=== PATIENT | female | born 1945 | race Caucasian/White ===

== ENCOUNTER 2018-05-23 06:59 | Inpatient (IN) | payer OTHER, SELFPAY ==
[2018-05-19 12:54] VITALS: BMI 32.1
[2018-05-23] VITALS (15 sets, daily range): BP systolic 100–145; BP diastolic 51–88; PULSE 84–97; RESP 16–22; TEMP 36.1–37.1; O2SAT 93–99; BMI 30.4
--- NOTE | 2018-05-23 07:38 | SUR.PREOP ---
Talking preoperatively about an ant infestion in her house. ? if home environment may be cause for concern of post operative infection.
[2018-05-23] MEDS: LACTATED RINGERS 1,000 ML 42 ML IV ×2 (07:43→11:41)
[2018-05-23] MEDS: CEFAZOLIN 2 GM/100 ML FROZ.PIGGY IV ×3 (08:01→19:11)
--- NOTE | 2018-05-23 08:17 | PM.PREOP ---
Pre-operative Note Interval Note Pre-op Check: History & Physical Reviewed by Physician, Exam Performed and History & Physical exam performed today
--- NOTE | 2018-05-23 08:50 | SUR.OPER ---
Prone on spine table, head in foam head support, padded chest and pelvic supports, gel pad at knees, lower legs supported by pillows; nipples, genitalia and toes free of pressure, arms secured on foam padded arm boards at <90 degrees abduction. Tape over blanket at thigh secured to table. Pt presents to the OR with right pupil slightly smaller than left as noted per anesthesia.
[2018-05-23] MEDS: BUPIVACAINE LIPOSOME 266 MG/20 ML VIAL INJ (09:04)
[2018-05-23] MEDS: BUPIVACAINE 0.25% W/ EPI 50 ML VIAL INJ (09:06)
--- NOTE | 2018-05-23 11:22 | SUR.OPER ---
blood sugar at 1005 was 137
--- NOTE | 2018-05-23 11:37 | PC.NURSE ---
Day shift: Pt not on this unit at this time. Will chart when Pt under this writers care. Time now is 1138.
[2018-05-23] MEDS: ACETAMINOPHEN IV 1,000 MG/100 ML VIAL 400 MG IV (11:43)
--- NOTE | 2018-05-23 12:36 | PM.OP.1 ---
Operative Date/Time/Diagnoses Date of procedure: 05/23/18 Time of procedure: 08:36 Pre-op diagnosis: 1. Lumbar scoliosis 2. Lumbar spinal stenosis. 3. Lumbar spondylosis with radiculopathy Post-op diagnosis: same Procedure & Clinicians Procedure: 1. L3-4, L4-5, L5-S1 Postero-lateral and posterior interbody fusion 2. L3-4, L4-5, L5-S1 interbody cage placement. 3. L3-4, L4-5, L5-S1 decompressive laminectomy with bilateral facetecomies 4. L3-4, L4-5, L5-S1 Posterior segmental instrumentation 5. Hanna of bone marrow from iliac crest 6. Utilization of microsurgical technique and operating microscope Same procedure as scheduled: Yes Indications: Patient has been having chronic back pain and worsening lumbar radiculopathy. Patient failed multiple conservative management with worsening pain weakness and numbness in her lower extremity. Patient has been having difficulty performing activity of daily living. After discussing risks benefits of treatment options, patient elected proceed with surgery. Surgeon: Kimberly Suarez Merchandise Support Associate: Lorna Hobbs Click Yes if Unassisted: No Anesthesia Type: General Operative Notes Closure Type: primary Specimen(s): none sent Implants & Drains: Globus Revolve screws and caliber cages Applied: catheter Estimated Blood Loss (mL): 250 Blood products transfused: none Procedure in detail: Patient was seen in the preoperative area. Risks and benefits of the surgery was discussed with the patient. Informed consent was obtained from the patient and placed in the chart. Surgical site was marked. Patient was taken to the operative room. General anesthesia was administered. Prophylactic antibiotic was given to the patient less than 30 min before the incision was made. Patient was placed into a prone position on the Yordan table. Patient's back was then prepped and draped in the sterile fashion. Time-out was performed at this time. Using AP and lateral C-arm imaging the interval between L3-S1 was identified and marked on patient's back. A 3 inch incision 2 in from midline was made on the left side first. The fascia was incised in line with skin incision. Globus MARS retractors was placed inside the incision and docked onto the L3, L4 and L5 lamina. Using microsurgical technique and operating microscope, a L3, L4 and L5 laminectomy and L3-4, L4-5 L5-S1 facetectomy was performed using a Kerrison rongeur. The disc space at L3-4, L4-5, L5-S1 was identified. And a total diskectomy was performed at L3-4, L4-5, L5-S1 level. The endplates were decorticated using a rasp and shaver. The total diskectomy and decortication was performed at L3-4, L4-5, L5-S1 level in order to to accomplish a L3-4, L4-5, L5-S1 fusion. The local bone from the laminectomy and facetectomy was saved for local bone grafting. After the total diskectomy and decortication was completed, Globus viacell bone graft material was combined with local bone that was harvested earlier. At this time, a separate skin is incision was made over the iliac crest. A Jamshidi needle was inserted into the iliac crest through a separate skin incision. 5 cc of bone marrow aspiration was obtained through the separate skin incision using a Jamshidi needle from the iliac crest. The bone marrow aspiration was combined with local bone and the via cell bone grafting material. The bone grafting material was placed into the L3-4, L4-5, L5-S1 interbody space along with three cages, one expandable cage at each level. The cages were expanded to their maximum height using the torque limiting screwdriver. At this time a mirror image incision was made on the right side. The fascia was incised in line with the skin incision. Globus MARS retractor was inserted and docked onto the L3-4, L4-5, L5-S1 posterolateral gutter. Using the power drill, posterior-lateral decortication was performed at L3-4, L4-5, L5-S1 level until bleeding cortical bone was identified. The remaining bone grafting material was placed into the L3-4, L4-5 L5-S1 posterior lateral gutter he order to accomplish posterolateral fusion at the L3-4, L4-5 L5-S1 levels. Using the double C-arm technique, pedicle screws were placed into the L3, L4, L5, S1 pedicles bilaterally. This was done by placing the Jamshidi needle into the pedicles, then placing the guidewires over the Jamshidi needle, and finally placing the cannulated screws over the guidewires bilaterally. After the pedicle screws were placed, 2 titanium rods was locked into the heads of the pedicle screws using locking caps and torque limiting screwdriver. Total 8 pedicles screws were placed. After all the hardware was placed, and confirmed with AP and lateral C-arm imaging, the wound was then irrigated with sterile normal saline and packed with Ray-Lelo gauze for 3 min to accomplish hemostasis. After the gauze was removed the deep fascia was closed with #1 Vicryl suture. The subcutaneous layer was closed with 2-0 Vicryl. The skin was closed with skin eliezer. Patient tolerated the procedure well. There were no complications. Complications: none Condition: stable Disposition: Acute Care Plan for aftercare: Admit to inpatient hospital
--- NOTE | 2018-05-23 12:40 | DI.RAD.S_ITS ---
PROCEDURE: XR LUMBAR SPINE 2-3V INDICATIONS: L-3-4, L4-5, L5-S1 TLIF TECHNIQUE: 2 views of the lumbar spine were acquired. COMPARISON: [facility], , XR LUMBAR SPINE 2 OR 3VW, 06/15/2017, 12:26. FINDINGS: Bones: AP and lateral intraoperative images were obtained over the lower lumbar spine showing placement of disc spacers at L3-4, L4-5 and L5-S1. Posterior fusion with transpedicular screws and vertical connecting rods bilaterally L3-S1 Soft tissues: Overlying bowel gas pattern is normal. No suspicious soft tissue calcifications. IMPRESSION: Intraoperative imaging for discectomy and posterior fusion L3-4, L4-5 and L5-S1 Dictated by: Marc Patel M.D. on 05/23/2018 at 12:50 Approved by: Marc Patel M.D. on 05/23/2018 at 12:51
[2018-05-23] MEDS: HYDROMORPHONE 2 MG INJ 0.5 MG IV ×3 (13:05→13:15)
--- NOTE | 2018-05-23 14:14 | PC.NURSE ---
Day shift: Arrived on AC unit in AC bed at approx 1405 from PACU. 2L NC w/ SpO2 95%. Pt very sleepy/drowsy at this time and is unable to ask any questions. Oriented to call light and it is in reach. High fall risk. Bed alarm is on as well as door open and line of site to this RN's work station. Bulky dressing on lower back is CDI. Put on cont O2 monitor for safety. Had IV Ativan in PACU. Will cont to monitor. Foot SCD's in place and tolerating. Rodriguez patent and drained by CONFERENCE CONCIERGE on arrival. Per PACU report Pt may have unsafe/unhealthy home environment for post-op healing. Noemi in notified. Pt likely to be here 48hr or more.
[2018-05-23] MEDS: SODIUM CHLORIDE 0.9% 1,000 ML 100 ML IV ×2 (14:28→23:59)
[2018-05-23] MEDS: hydrOXYzine pamoate 25 MG CAPSULE PO ×2 (16:40→21:08)
[2018-05-23] MEDS: OXYCODONE IR 5 MG TABLET 10 MG PO ×3 (16:40→23:58)
[2018-05-23] MEDS: HYDROMORPHONE 0.5 MG INJ IV ×4 (16:45→23:58)
[2018-05-23] MEDS: DICYCLOMINE 10 MG CAPSULE 40 MG PO (21:07)
[2018-05-23] MEDS: DOCUSATE 100 MG CAPSULE PO (21:09)
[2018-05-23] MEDS: SIMVASTATIN 40 MG TABLET PO (21:09)
[2018-05-23] MEDS: SENNOSIDES 8.6 MG TABLET 17.2 MG PO (21:09)
[2018-05-23] MEDS: METFORMIN HCL 500 MG TABLET PO (21:09)
[2018-05-24] VITALS (9 sets, daily range): BP systolic 111–142; BP diastolic 60–72; PULSE 93–95; RESP 16–20; TEMP 36.7–37.8; O2SAT 93–100
[2018-05-24] MEDS: OXYCODONE IR 5 MG TABLET 10 MG PO ×5 (04:04→21:55)
[2018-05-24] MEDS: CEFAZOLIN 2 GM/100 ML FROZ.PIGGY IV (04:25)
--- NOTE | 2018-05-24 05:21 | PC.NURSE ---
Computer Peripheral Equipment Operator- Pt did not have much sleep, on/off, mainly awake throughout night, was found to be asleep around 0300. Oriented X4, forgetful, needs frequent reminders for post op precautions, log roll and no twisting at waist. After being placed on pt's right side supported with pillows, pt bent at waist with slight twist to left, grabbing her water after having just reminded her of the post op precautions and using her bed controls for elevation. High fall risk precautions in place, bed alarm on, call light within reach. At 2345, lower mid back dressing CDI. Pt shifts herself frequently in bed. At 0430 assessment, right side of dressing rolled off and eliezer exposed. Dressing removed, area cleansed with NS, eliezer intact with both vertical incisions well approximated. Telfa with barrier dressing applied. IVF infusing well to right FA PIV.
[2018-05-24 05:58] LABS: Hematocrit 28.8 % (36-46); Hemoglobin 9.8 g/dL (12.0-16.0)
[2018-05-24] MEDS: HYDROMORPHONE 0.5 MG INJ IV ×2 (06:26→11:37)
[2018-05-24] MEDS: hydrOXYzine pamoate 25 MG CAPSULE PO ×2 (07:46→11:37)
[2018-05-24] MEDS: ACETAMINOPHEN 325 MG TABLET 650 MG PO (07:47)
--- NOTE | 2018-05-24 07:51 | PM.PNPO.1 ---
Subjective Date Patient Seen: 05/24/18 Time Patient Seen: 07:51 Interval history: Pt in bed. States she is having a lot of pain in the back area. Denies any leg pain. She is about to get her pain medication. S/P lumbar fusion by Dr. Suarez. PD 1. Plan is for patient to go home when medically stable to do so. Exam Vital Signs (past 8 hours): - 05/24/18 01:40 05/24/18 03:00 05/24/18 04:00 Temperature 100.1 F H Pulse Rate 94 H Respiratory Rate 20 Blood Pressure 142/72 H Pulse Oximetry 97 93 98 05/24/18 04:10 05/24/18 07:47 Temperature 99.5 F 99.8 F H Pulse Rate Respiratory Rate Blood Pressure Pulse Oximetry Oxygen Delivery Method Nasal Cannula Oxygen Flow Rate 1 Narrative Exam Narrative: Pt in bed. A&O x3. Back dressing CDI. 5/5 BLE strength. NV status intact. Edgard calves soft and nontender. Underwood in. Objective Labs Result Diagrams: 05/24/18 05:22 Labs: Laboratory Results - last 24 hr 05/24/18 05:22 Hgb 9.8 L Hct 28.8 L Assessment & Plan Post-op (1) Postoperative anemia: Problem details: Iron and Vt C ordered Current Visit: Yes Status: Acute Postoperative Procedures Operation Date: 05/23/18 07:45 Actual Procedures Side Surgeon p L3-4,L4-5,L5-S1 TLIF w/Posterior Instru Kimberly Suarez MD s/p lumbar fusion. PD 1. Continue pain medication. Mobilize with PT. D/C underwood when more mobile. Plan is to d/c home when medically stable. Time Spent With Patient less than 15 minutes
[2018-05-24] MEDS: PANTOPRAZOLE 40 MG TABLET PO (09:31)
[2018-05-24] MEDS: LOSARTAN 50 MG TABLET PO (09:32)
[2018-05-24] MEDS: ASCORBIC ACID 500 MG TABLET PO (09:32)
[2018-05-24] MEDS: FLUoxetine 20 MG CAPSULE 40 MG PO (09:32)
[2018-05-24] MEDS: FERROUS SULFATE 325 MG TABLET PO (09:32)
[2018-05-24] MEDS: DICYCLOMINE 10 MG CAPSULE 40 MG PO ×2 (09:32→20:32)
[2018-05-24] MEDS: METFORMIN HCL 500 MG TABLET PO ×2 (09:32→20:32)
[2018-05-24] MEDS: DOCUSATE 100 MG CAPSULE PO ×2 (09:32→20:32)
--- NOTE | 2018-05-24 09:55 | PT.IIE ---
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) Other spondylosis with radiculopathy, lumbar region (05/23/18) Spinal stenosis, lumbar region without neurogenic claudication (05/23/18) Surgery Performed Operation Date: 05/23/18 07:45 Actual Procedures p L3-4,L4-5,L5-S1 TLIF w/Posterior Lawrence - Kimberly Suarez MD Surgical History (Last Updated 05/20/18 @ 14:07 by Kalli Hylton RN) Hx of cholecystectomy (Acute) Hx of cone biopsy of cervix (Acute) Medical History (Last Updated 05/24/18 @ 07:54 by Tamiko Shah PA-C) Postoperative anemia (Acute) Back pain (Acute) Chronic headaches (Acute) Chronic hyperkalemia (Acute) Decreased vibratory sense (Acute) Depression (Acute) Diabetes (Acute) Diarrhea (Acute) GERD (gastroesophageal reflux disease) (Acute) HTN (hypertension) (Acute) Heel abrasion (Acute) History of hysterectomy (Acute) Hyperlipidemia (Acute) Renal tubular acidosis (Acute) Physical Therapy Inpatient Evaluation/Re-Eval M1 PT/OT-IP Prior Functional Status Start: 05/24/18 10:55 Freq: NEEDED Status: Active Protocol: Document 05/24/18 09:55 AB (Rec: 05/24/18 11:03 [id number]) Medical Review Prior Functional Status Medical History Reviewed Yes Communication with confusion but able to make needs known Mobility and Gait stated that she is independent with all mobilities and ambulation without AD but has not been able to do much since June of last year due to back pain Social History Household Members family Living Arrangements House Number of Floors (Floors) One Floor Number of Stairs To Enter/Railing? 2 steps to enter without rails Home Environment Standard Height Toilet Walk in Shower Home Equipment Front Wheel Walker Raised Toilet Seat Without Armrests Employment Status Retired Additional Social History Comment stated that she lives with her brother but her brother cannot provide physical assistance M2 PT-IP Current Condition Start: 05/24/18 10:55 Freq: NEEDED Status: Active Protocol: Document 05/24/18 09:55 AB (Rec: 05/24/18 11:03 AB [id number]) Physical Therapy Current Condition Current Condition Evaluation Date 05/24/18 Treatment Diagnosis L3-4, L4-5, L5S1 TLIF, laminectomy; difficulties in walking Onset Date 05/23/18 Precautions Lumbar Precautions Log Roll No Twisting Limit Bending Lifting Restriction of 10 lbs Gait Belt above Incisional Area M3 PT-IP Subjective Start: 05/24/18 10:55 Freq: NEEDED Status: Active Protocol: Document 05/24/18 09:55 AB (Rec: 05/24/18 11:03 AB [id number]) Subjective Physical Therapy Visit Type Type Initial Evaluation Visit Start Time 09:55 Visit Stop Time 10:35 Total Visit Minutes 40 Number of FULL STACK DEVELOPER Visits 0 Physical Therapy Visit Comments Patient Comments c/o a lot of pain Therapy Pain Assessment Pain When Pain Assessed At Rest Pain Present Pain Present Pain Reported Location Back Intensity 4 Scale Used pain increases to 10/10 with movement Pain Management Techniques Timing of Activity with Medications M4 PT-IP Mobility and Gait Start: 05/24/18 10:55 Freq: NEEDED Status: Active Protocol: Document 05/24/18 09:55 AB (Rec: 05/24/18 11:03 AB [id number]) PT-Bed Mobility Assessment Rolling Type of Rolling Log Rolling Level of Assist Maximal Assistance Supine to Sit Supine to Sit Maximum Assistance 1 Person Assistance Bedrails Scooting Scooting to Edge of Bed Moderate Assistance PT-Transfer Assessment Sit to and From Stand Sit to and from Stand Maximum Assistance 1 Person Assistance 2 Person Assistance Equipment Transfer Assistive Device Bed Rail Front Wheeled Walker Gait Assessment Gait Gait Assistance Required: Moderate Assistance Maximum Assistance Distance (Feet) (feet) 10 Able to Maintain Weight Bearing Status Yes During Gait Assistive Devices Assistive Device Gait Belt Front Wheeled Walker Orthotic/Prosthetic Devices or Brace: No Gait Deviations General Gait Pattern Antalgic Decreased Stride Length Decreased Feet Clearance Factors Limiting Gait Function Factors Limiting Gait Function Decreased Activity Tolerance Decreased Strength Difficulty Following Directions Limited Range of Motion Pain Poor Balance Poor Safety Awareness PT-Balance Assessment Sitting Balance and Reactions Static Sitting Balance Ability Good Dynamic Sitting Balance Ability Fair Standing Balance and Reactions Static Standing Balance Ability Fair Dynamic Standing Balance Ability Poor Device Used FWW M5 PT-IP Objective Assessments Start: 05/24/18 10:55 Freq: NEEDED Status: Active Protocol: Document 05/24/18 09:55 AB (Rec: 05/24/18 11:03 AB [id number]) Orientation Orientation/Cognition Level of Alertness Confusional State Orientation Name Year Place Situation Safety Awareness Decreased Safety Awareness Memory Description Short Term Impaired Gambling Broker Impaired Gross Range of Motion Lower Extremity ROM Assessment Within Functional Limits Strength Lower Extremity Strength Assessment Bilaterally Impaired Hip 4-/5 Knee 4-/5 M6 PT-IP Treatment Start: 05/24/18 10:55 Freq: NEEDED Status: Active Protocol: Document 05/24/18 09:55 AB (Rec: 05/24/18 11:03 AB [id number]) Physical Therapy Treatment Education Education Provided Precautions Weight Bearing Status Post-Op Packet Safety M7 PT-IP Assessment and Plan Start: 05/24/18 10:55 Freq: NEEDED Status: Active Protocol: Document 05/24/18 09:55 AB (Rec: 05/24/18 11:03 AB [id number]) PT Summary Assessment and Plan Potential Rehabilitation Potential Fair Status of Condition at Evaluation Evolving Summary Impairments Pain ROM Strength Balance Coordination Sensation Tone Cognition Bed Mobility Transfers Gait Activity Tolerance Assessment Summary pt requiring max A x 1-2 with mobility and has not been able tolerate much activity today. pt stated that her brother will not be able to assist her much at home. pt may require SNF rehab to improve mobility . Goals Bed Mobility Goal Standby Assistance Transfer Goal Standby Assistance Front Wheeled Walker Gait Goal Standby Assistance Front Wheel Walker Gait Distance 100 Other Goals up/down 2 steps without rails/ using FWW SBA Days to Meet Goals 3 Frequency of Treatment Frequency Of Treatment Twice a Day Treatment Plan Physical Therapy Treatment Plan Bed Mobility Training Transfer Training Gait Training Therapeutic Exercise Balance Retraining Post Op Education Discharge Planning Hot or Cold Pack Neuromuscular Re-ed Coordination Retraining Manual Therapy Other Recommendations and Next Treatment bed mobility, transfers, Focus ambulation Recommendations To Nursing Amount of Assist Needed 2 Person Assist Discharge Recommendations PT Discharge Recommendations SNF Rehab
--- NOTE | 2018-05-24 11:20 | CM.DANOTE ---
Discharge Planning/Care Management CM Discharge Assessment Start: 05/24/18 11:16 Freq: Status: Active Protocol: Document 05/24/18 11:16 RL (Rec: 05/24/18 11:20 RL [email or web address]) Discharge Planning Assessment History Provided By Patient Family Member Has Patient been admitted in last 30 No days? Is this patient on Medicare? Yes Is the admit diagnosis the same? No Comment [facility] Adv. Prior Living Arrangements House Household Members family Type of transporation used prior to Drives own vehicle admit Comment lives with brother Cristi Juan who will assist her after d/c. Willing to Return to Facility? No: Will not consider a facility at all Independent with ADL's Yes Is patient alert and oriented? Yes Caregiver for Another No Patient Discharge Plan Description Home with Home Health Comment Will refer to HH when closer to d/c. Pt wants [facility] as her niece works for them as an RN. Will likely need bath aide, PT, OT, possibly farmworker bulbs Plan Home with Home Health If patient plan is home with home health No: Not yet, just PO day 1 and : Has signed face to face form been MD not in to see pt yet. completed? Review Status Complete
--- NOTE | 2018-05-24 11:51 | CM.DANOTE ---
Discharge Planning/Care Management CM Discharge Assessment Start: 05/24/18 11:16 Freq: Status: Active Protocol: Document 05/24/18 11:16 RL (Rec: 05/24/18 11:20 RL [email or web address]) Discharge Planning Assessment History Provided By Patient Family Member Has Patient been admitted in last 30 No days? Is this patient on Medicare? Yes Is the admit diagnosis the same? No Comment [facility] Adv. Prior Living Arrangements House Household Members family Type of transporation used prior to Drives own vehicle admit Comment lives with brother Cristi Juan who will assist her after d/c. Willing to Return to Facility? No: Will not consider a facility at all Independent with ADL's Yes Is patient alert and oriented? Yes Caregiver for Another No Patient Discharge Plan Description Home with Home Health Comment Will refer to HH when closer to d/c. Pt wants [facility] as her niece works for them as an RN. Will likely need bath aide, PT, OT, possibly assistant kitchen manager Plan Home with Home Health If patient plan is home with home health No: Not yet, just PO day 1 and : Has signed face to face form been MD not in to see pt yet. completed? Review Status Complete Document 05/24/18 11:51 RL (Rec: 05/24/18 11:51 RL [id number]) Discharge Planning Assessment History Provided By Patient Family Member Has Patient been admitted in last 30 No days? Is this patient on Medicare? Yes Is the admit diagnosis the same? No Comment [facility] Adv. Prior Living Arrangements House Household Members family Type of transporation used prior to Drives own vehicle admit Comment lives with brother Cristi Juan who will assist her after d/c. Willing to Return to Facility? No: Will not consider a facility at all Independent with ADL's Yes Is patient alert and oriented? Yes Caregiver for Another No Patient Discharge Plan Description Home with Home Health Comment Will refer to HH when closer to d/c. Pt wants [facility] as her niece works for them as an RN. Will likely need bath aide, PT, OT, possibly assistant kitchen manager Plan Home with Home Health If patient plan is home with home health No: Not yet, just PO day 1 and : Has signed face to face form been MD not in to see pt yet. completed? Review Status Complete DCP Assessment: 05/24/18 Case reviewed, EMR reviewed and met with patient and her sister Radha Hudson and KAI Hudson. Patient would like her sister added to Next of Kin contacts: cell [phone]. Verified other Emerg Contact as Cristi Perez, her brother, who lives with her. Patient is A&O, answers all questions properly, but does appear a bit confused by some things and is slow to respond. States pain level has been high. Pt is a 72 yo female admitted as Inpatient on 05/23 for Lumbar Fusion under the care of Dr. Suarez. PCP: Chelsie Her, PAC in [place]. Primary payor is: [employer] [facility] Other health care agencies used: none Met with patient , her sister and KAI in pt room. Introduced self as DCP, explained role and goals of DCP and as pt advocate. All verbalized understanding. DCP wrote name and extension number on patient whiteboard. All agree that patient was independent at baseline for all ADLs prior to this hospitalization. Patient will NOT consider d/c to a facility at all wants to go home. Her niece, Callie, is an RN who works for [facility]. She has encouraged pt to ask MD for order for HH services when she is d/c. We talked about what HH services include and that she must be homebound. All verbalized understanding and agreed she will be homebound and not driving. Patient lives in own home with brother Cristi Juan who will assist her after d/c. Patient states she has much DME at home: FWW, cane, shower seat. There are no stairs. Discussed rails/hand holds and she may need this evaluated by HH OT. Gave patient brochures for [facility], Adv Directives, and Sr. Resource Guide. Patient does NOT have DPOA completed so this info was given. Also requested POLST form; none avail in DCP office, but Aster at [facility] [place] does have some and stated she will get one down to the patient. Contacted: [facility], demarco GARCIA messg on Janet?s phone, also called office and talked to Yaneth who verified that they do accept [employer] insurance. FAXed over information to them today on this patient, with understanding that she is POD 1 and likely won?t go home for 1-2 days. Plan: Home with HH if determined need by Dr. Suarez. NEED: signed F2F if so. Melissa Allen RN
--- NOTE | 2018-05-24 12:13 | PC.NURSE ---
Day shift: Pt's home meds sent to pharmacy for lock up this AM. Pt has been forgetful at times. She needs to have chair/bed alarms on at all times. She has been calm and cooperative w/ care. Call light in reach. Door to room open.
--- NOTE | 2018-05-24 14:07 | CM.DPC ---
JOSE butler received from Janet at [facility]. She stated information on this patient received by FAX, and yes, they would be able to accept this patient onto their service and could easily see her w/in 48hr of d/c, possibly even 24 hrs depending upon d/c day. DCP to keep in touch on patient progress and let [facility] know when patient closer to d/c. Will need F2F and HH order completed. Melissa Allen RN
--- NOTE | 2018-05-24 14:17 | PT.IPTN ---
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) Other spondylosis with radiculopathy, lumbar region (05/23/18) Spinal stenosis, lumbar region without neurogenic claudication (05/23/18) Surgery Performed Operation Date: 05/23/18 07:45 Actual Procedures p L3-4,L4-5,L5-S1 TLIF w/Posterior Lawrence Suarez MD Physical Therapy Treatment Note M2 PT-IP Current Condition Start: 05/24/18 10:55 Freq: NEEDED Status: Active Protocol: Document 05/24/18 09:55 AB (Rec: 05/24/18 11:03 AB [id number]) Physical Therapy Current Condition Current Condition Evaluation Date 05/24/18 Treatment Diagnosis L3-4, L4-5, L5S1 TLIF, laminectomy; difficulties in walking Onset Date 05/23/18 Precautions Lumbar Precautions Log Roll No Twisting Limit Bending Lifting Restriction of 10 lbs Gait Belt above Incisional Area M3 PT-IP Subjective Start: 05/24/18 10:55 Freq: NEEDED Status: Active Protocol: Document 05/24/18 13:03 CLB (Rec: 05/24/18 14:17 CLB [email or web address]) Subjective Physical Therapy Visit Type Type Treatment Note Visit Start Time 13:03 Visit Stop Time 13:27 Total Visit Minutes 24 Number of CRUISE GUIDE Visits 1 Physical Therapy Visit Comments Patient Comments Pt states she is feeling better this afternoon. Therapy Pain Assessment Pain When Pain Assessed During Mobility Pain Present Pain Present Pain Reported Location Back Scale Used unable to decide on a number but stated not as bad as this morning. Pain Management Techniques Timing of Activity with Medications M4 PT-IP Mobility and Gait Start: 05/24/18 10:55 Freq: NEEDED Status: Active Protocol: Document 05/24/18 13:03 CLB (Rec: 05/24/18 14:17 CLB [id number]) PT-Bed Mobility Assessment Rolling Type of Rolling Log Rolling Level of Assist Minimal Assistance 1 Person Assistance Sit to Supine Sit to Supine Minimal Assistance 1 Person Assistance PT-Transfer Assessment Sit to and From Stand Sit to and from Stand Contact Guard Assistance 1 Person Assistance Equipment Transfer Assistive Device Front Wheeled Walker Transfers Transfer Destination Bed Transfer Technique sitting on EOB upon arrival Transfer Ability Level of Assist Contact Guard Assistance Minimal Assistance 1 Person Assistance Comments Mobility Comments Pt improving with bed mobility . After demonstration pt was able to lay in bed with Min A of LE. Pt remained on R side once laying down. Gait Assessment Gait Gait Assistance Required: Contact Guard Assist 1 Person Assist Distance (Feet) (feet) 125 Able to Maintain Weight Bearing Status Yes During Gait Assistive Devices Assistive Device Gait Belt Front Wheeled Walker Orthotic/Prosthetic Devices or Brace: No Gait Deviations General Gait Pattern Antalgic Decreased Stride Length Decreased Feet Clearance Factors Limiting Gait Function Factors Limiting Gait Function Decreased Activity Tolerance Decreased Strength Difficulty Following Directions Limited Range of Motion Pain Poor Balance Poor Safety Awareness Comments Gait Comments Pt improved with ambulation distance and was able to walk in hemphill. Pt needed several rest breaks and cues for back precautions. PT-Balance Assessment Sitting Balance and Reactions Static Sitting Balance Ability Good Dynamic Sitting Balance Ability Fair Standing Balance and Reactions Static Standing Balance Ability Fair Dynamic Standing Balance Ability Poor Device Used FWW M5 PT-IP Objective Assessments Start: 05/24/18 10:55 Freq: NEEDED Status: Active Protocol: Document 05/24/18 09:55 AB (Rec: 05/24/18 11:03 AB [id number]) Orientation Orientation/Cognition Level of Alertness Confusional State Orientation Name Year Place Situation Safety Awareness Decreased Safety Awareness Memory Description Short Term Impaired Halfway Impaired Gross Range of Motion Lower Extremity ROM Assessment Within Functional Limits Strength Lower Extremity Strength Assessment Bilaterally Impaired Hip 4-/5 Knee 4-/5 M6 PT-IP Treatment Start: 05/24/18 10:55 Freq: NEEDED Status: Active Protocol: Document 05/24/18 09:55 AB (Rec: 05/24/18 11:03 AB [id number]) Physical Therapy Treatment Education Education Provided Precautions Weight Bearing Status Post-Op Packet Safety M7 PT-IP Assessment and Plan Start: 05/24/18 10:55 Freq: NEEDED Status: Active Protocol: Document 05/24/18 13:03 CLB (Rec: 05/24/18 14:17 CLB [email or web address]) PT Summary Assessment and Plan Potential Rehabilitation Potential Fair Status of Condition at Evaluation Evolving Summary Impairments Pain ROM Strength Balance Coordination Sensation Tone Cognition Bed Mobility Transfers Gait Activity Tolerance Assessment Summary Pt improving with all mobility and has better pain control. Pt lives with her brother and he will not be able to her assist with all care needs. Pt may require SNF rehab to improve strength and mobility. Goals Bed Mobility Goal Standby Assistance Transfer Goal Standby Assistance Front Wheeled Walker Gait Goal Standby Assistance Front Wheel Walker Gait Distance 100 Other Goals up/down 2 steps without rails/ using FWW SBA Frequency of Treatment Frequency Of Treatment Twice a Day Treatment Plan Physical Therapy Treatment Plan Bed Mobility Training Transfer Training Gait Training Therapeutic Exercise Balance Retraining Post Op Education Discharge Planning Hot or Cold Pack Neuromuscular Re-ed Coordination Retraining Manual Therapy Other Recommendations and Next Treatment bed mobility, transfers, Focus ambulation Recommendations To Nursing Amount of Assist Needed 1 Person Assist Discharge Recommendations PT Discharge Recommendations SNF Rehab
--- NOTE | 2018-05-24 15:55 | OT.IP.EVAL ---
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) Other spondylosis with radiculopathy, lumbar region (05/23/18) Spinal stenosis, lumbar region without neurogenic claudication (05/23/18) Surgery Performed Operation Date: 05/23/18 07:45 Actual Procedures p L3-4,L4-5,L5-S1 TLIF w/Posterior Lawrence Suarez MD Past Medical History (Last Updated 05/24/18 @ 07:54 by Tamiko Shah PA-C) Postoperative anemia (Acute) Back pain (Acute) Chronic headaches (Acute) Chronic hyperkalemia (Acute) Decreased vibratory sense (Acute) Depression (Acute) Diabetes (Acute) Diarrhea (Acute) GERD (gastroesophageal reflux disease) (Acute) HTN (hypertension) (Acute) Heel abrasion (Acute) History of hysterectomy (Acute) Hyperlipidemia (Acute) Renal tubular acidosis (Acute) Surgical History (Last Updated 05/20/18 @ 14:07 by Kalli Hylton RN) Hx of cholecystectomy (Acute) Hx of cone biopsy of cervix (Acute) Occupational Therapy Inpatient Evaluation/Re-Eval M1 PT/OT-IP Prior Functional Status Start: 05/24/18 10:55 Freq: NEEDED Status: Active Protocol: Document 05/24/18 15:55 PAMELA (Rec: 05/24/18 17:06 PAMELA [id number]) Medical Review Prior Functional Status Medical History Reviewed Yes Diet/Fluid Consistency Regular Communication WFL Mobility and Gait stated that she is independent with all mobilities and ambulation without AD but has not been able to do much since June of last year due to back pain Activities of Daily Living and IADL's Pt states she is indep with all self care and does her own meal prep, grocery shopping and laundry. 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 Pt drives. Social History Household Members family Living Arrangements House Number of Floors (Floors) One Floor Number of Stairs To Enter/Railing? two small steps to enter (each step ~4 high) with no rail to enter house Home Environment Standard Height Toilet Walk in Shower Home Equipment Front Wheel Walker Shower Seat with Backrest Hand Held Shower Long Handled Sponge Employment Status Retired Additional Social History Comment Pt lives with her brother and states he is not able/willing to provide any physical assist to pt. He can assist with grocery shopping and some ice sculptor. Pt states her niece, who is an RN, may be able to assist her with showering at home. M2 OT-IP Current Condition Start: 05/24/18 14:38 Freq: Status: Active Protocol: Document 05/24/18 15:55 PJM (Rec: 05/24/18 17:06 [facility] [id number]) Occupational Therapy Current Condition Current Condition Evaluation Date 05/24/18 Treatment Diagnosis decreased self care,functional mobility s/p multi level lumbar fusion Diagnosis Onset Date 05/23/18 Post Operative Precautions Lumbar Precautions Log Roll No Twisting Limit Bending Lifting Restriction of 10 lbs Gait Belt above Incisional Area M3 OT- IP Subjective and Pain Start: 05/24/18 14:38 Freq: Status: Active Protocol: Document 05/24/18 15:55 PJM (Rec: 05/24/18 17:06 [facility] [id number]) OT- Subjective Occupational Therapy Visit Type Type Initial Evaluation Visit Start Time 15:05 Visit Stop Time 15:55 Total Visit Minutes 50 Occupational Therapy Visit Comments Patient Comments I have got to get up now. I need to change positions. Patient/Caregiver Goals to resume independent living at home, be able to garden OT Pain Assessment Pain When Pain Assessed After Treatment Pain Present Pain Present Pain Reported Location Back Intensity 7 Scale Used Numeric (1 - 10) Description Aching Acute Pain Behaviors Facial Grimacing Guarding Restlessness Wincing Management Techniques Distraction Re-positioning Timing of Activity with Medications M4 OT- IP ADL's Start: 05/24/18 14:38 Freq: Status: Active Protocol: Document 05/24/18 15:55 PJM (Rec: 05/24/18 17:06 [facility] [id number]) OT [id number] General Evaluation Self-Feeding Ability Independent Comments OT Self-Feeding Comments per pt report OT ADL-Grooming Comments OT Grooming Comments to be assessed OT ADL-Oral Care Comments Oral Care Comments to be assessed OT ADL-Dressing General Eval Upper Body Dressing Ability Standby Assistance Lower Body Dressing Ability Maximum Assistance Areas Needing Assistance Retrieving/Set-up of Clothing Underpants/Brief Pants/Shorts Socks Shoes Assistive Devices Dressing Assistive Devices Long Handled Shoe Horn Director Loan Sock Aid Comments OT Dressing Comments Began education/demo re: use of early childhood coordinator, sock aid, long shoe horn. Pt took pictures of equipt and texted them to her brother in law who is assisting her with obtaining equipt. OT ADL-Toileting General Evaluation Toileting Ability Total Assistance Areas Needing Assistance Empty Catheter or Colostomy Comments OT Toileting Comments underwood still in place, pt declines toilet paper aid OT ADL-Bathing Comments OT Bathing Comments to be assessed as activity tolerance improves M5 OT- IP IADL's Start: 05/24/18 14:38 Freq: Status: Active Protocol: Document 05/24/18 15:55 PJM (Rec: 05/24/18 17:06 [facility] [id number]) OT-Instrumental Activities of Daily Living Deficits IADL Deficits Identified Deficits Home Safety Awareness Awareness of Need for Assistance at Home Good Awareness Meal Preparation Meal Preparation Caregiver Provides Assist Meal Preparation Comments brother will assist with shopping for groceries per pt; she plans to microwave meals Carpet Installation Specialist Carpet Installation Specialist Caregiver Provides Assist Carpet Installation Specialist Comments brother to assist PRN Driving Driving Caregiver Provides Assist Driving Comments brother can assist until pt able M6 OT- IP Functional Cognition Start: 05/24/18 14:38 Freq: Status: Active Protocol: Document 05/24/18 15:55 PJM (Rec: 05/24/18 17:06 [facility] [id number]) Cognitive Factors Limiting Selfcare Function Cognitive Ability Level of Alertness Alert Attention Span Ability Capable of Focused Attention Ability to Follow Commands Able to Follow One Step Commands Safety Awareness Decreased Recall of Precautions Decreased Ability to Apply Precautions Underestimates Need for Assistance Problem Solving Ability Needs Assist to Identify Solutions Executive Function Ability Unable to Filter Distractions Unable to Remember Details Cognitive Comments Cognitive Assessment Comments Pt restless and somewhat impulsive; requiring mod to max cues to follow precautions during mobility. OT- Vision and Hearing OT- Hearing Assessment OT- Hearing Assessment WFL OT- Vision Assessment Visual Acuity WFL Glasses All The Time Vision Assessment Comments Pt denies any recent vision changes M7 OT- IP Mobility and Balance Start: 05/24/18 14:38 Freq: Status: Active Protocol: Document 05/24/18 15:55 PJM (Rec: 05/24/18 17:06 [facility] [id number]) OT- Bed Mobility Assessment Rolling Type of Rolling Log Rolling Level of Assistance Contact Guard Assistance 1 Person Assistance Sit to Supine Sit to Supine Assist Contact Guard Assistance 1 Person Assistance Scooting Scooting to Edge of Bed Standby Assistance OT-Transfer Assessment Sit to and From Stand Sit to and from Stand Contact Guard Assistance Transfers Transfer Ability Contact Guard Assistance Technique Transfer Destination Chair Transfer Technique Stand Step Pivot Devices Transfer Assistive Devices Gait Belt Front Wheeled Walker Comments Mobility Comments Pt needs mod to max cues for log rolling technique and to avoid twisting and bending to get her purse off floor. OT- Gait Assessment Gait Gait Assistance Required: Contact Guard Assist Distance (Feet) (feet) 3 Assistive Devices Assistive Device Gait Belt Standard Walker Comments Gait Ability Comments from bed to chair with FWW OT- Balance Assessment Sitting Balance and Reactions Static Sitting Balance Ability Good Dynamic Sitting Balance Ability Fair Standing Balance and Reactions Static Standing Balance Ability Good Dynamic Standing Balance Ability Fair M8 OT- IP Objective Assessments Start: 05/24/18 14:38 Freq: Status: Active Protocol: Document 05/24/18 15:55 PJM (Rec: 05/24/18 17:06 PJ [id number]) OT Gross Range of Motion Upper Extremity Range of Motion Assessment Within Functional Limits OT Strength Upper Extremity Strength Assessment Within Functional Limits OT- Coordination Assessment Comments Coordination Comments BUE WFL OT-Muscle Tone Assessment Muscle Tone WNL Yes OT Sensation Assessment Comments Summary Comments Pt denies deficits in BUE's M9 OT- IP Assessment and Plan Start: 05/24/18 14:38 Freq: Status: Active Protocol: Document 05/24/18 15:55 PJM (Rec: 05/24/18 17:06 PJ [id number]) OT Summary Assessment and Plan Potential Rehabilitation Potential Good Analytic Complexity at Evaluation Low Summary OT Impairments Pain Balance Functional Cognition Functional Mobility Grooming Dressing Toileting Bathing Toilet Transfers Shower Transfers Assessment Summary Low complexity OT assessment completed with emphasis on functional mobility and self care skills within lumbar spine precautions. Pt can verbalize precautions, but needs mod to max cues to follow them during mobility. She is restless and impulsive due to pain level this session . Pt needs to be indep with basic self care in order to return home as her brother not willing to assist with this. Niece may be able to assist with showering. Brother will assist with some IADLS per pt. Pt moving well despite high pain level this PM. Anticipate pt will continue to improve and be able to d/c home with family assist. Pt needs further education/practice with all self care and functional mobility here to ensure that she is following precautions. Recommend HH OT/ PT/ possible bath aide at d/c. Goals Grooming Goal Independent Dressing Goal Independent Long Handled Shoe Horn Director Loan Sock Aid Toileting Goal Independent Bathing Goal Minimal Assistance Toilet Transfer Goal Independent Raised Toilet Seat With Rails Shower Transfer Goal Contact Guard Assistance Patient/Caregiver Education Goal Demonstrate Post-Op Precautions OT-Other Goals Grooming to be completed standing at sink. Days to Meet Goals 4 Frequency of Treatment Frequency Of Treatment Once a Day Treatment Plan OT Treatment Plan ADL Training Functional Mobility Patient/Family Education Discharge Planning Other Treatment Recommendations and Next grooming at sink, LB dressing Treatment Focus w/AED Discharge Recommendations OT Discharge Recommendations Home with Assistance Home Health Home Equipment Needs early childhood coordinator, sock aid, long shoe horn, raised toilet seat
[2018-05-24] MEDS: SENNOSIDES 8.6 MG TABLET 17.2 MG PO (20:33)
[2018-05-24] MEDS: SIMVASTATIN 40 MG TABLET PO (20:33)
[2018-05-25] VITALS (7 sets, daily range): BP systolic 108–134; BP diastolic 47–64; PULSE 75–98; RESP 16–20; TEMP 36.3–37.1; O2SAT 93–99
[2018-05-25] MEDS: hydrOXYzine pamoate 25 MG CAPSULE PO ×2 (03:53→11:19)
[2018-05-25] MEDS: OXYCODONE IR 5 MG TABLET 10 MG PO ×5 (03:53→20:51)
--- NOTE | 2018-05-25 08:35 | PM.PNPO.1 ---
Subjective Date Patient Seen: 05/25/18 Time Patient Seen: 08:36 Interval history: Patient is postop day 2 status post lumbar fusion by Dr. Suarez. States pain is tolerable with pain medications. Has been up to chair few times and a little out to hallway. Rodriguez still in. Would like to go home but a little concerned with pain control. Exam Vital Signs (past 8 hours): - 05/25/18 04:30 Temperature 98.1 F Pulse Rate 91 H Respiratory Rate 18 Blood Pressure 126/55 H Pulse Oximetry 96 Oxygen Delivery Method Nasal Cannula Oxygen Flow Rate 1 Narrative Exam Narrative: Patient in bed. Alert orient x3. Back dressing clean, dry but starting to come off a little. Edgard calves soft and nontender. NV status intact. 5/5 BLE strength. Rodriguez in. Objective Labs Result Diagrams: 05/24/18 05:22 Assessment & Plan Post-op Postoperative Procedures Operation Date: 05/23/18 07:45 Actual Procedures Side Surgeon p L3-4,L4-5,L5-S1 TLIF w/Posterior Instru Kimberly Suarez MD On postop day 2 status post lumbar fusion by Dr. Suarez. Continue PT. Continue pain medication as needed. Will DC Rodriguez when more mobile. Change back dressing to cover site dressing. Continue iron and vitamin C for postoperative anemia. New H&H ordered for tomorrow. Anticipate DC home tomorrow. Time Spent With Patient less than 15 minutes
[2018-05-25] MEDS: FLUoxetine 20 MG CAPSULE 40 MG PO (09:36)
[2018-05-25] MEDS: METFORMIN HCL 500 MG TABLET PO ×2 (09:36→20:52)
[2018-05-25] MEDS: ASCORBIC ACID 500 MG TABLET PO (09:36)
[2018-05-25] MEDS: LOSARTAN 50 MG TABLET PO (09:36)
[2018-05-25] MEDS: FERROUS SULFATE 325 MG TABLET PO (09:36)
[2018-05-25] MEDS: DOCUSATE 100 MG CAPSULE PO ×2 (09:37→20:51)
[2018-05-25] MEDS: DICYCLOMINE 10 MG CAPSULE 40 MG PO ×2 (09:37→20:51)
[2018-05-25] MEDS: PANTOPRAZOLE 40 MG TABLET PO (09:38)
--- NOTE | 2018-05-25 10:16 | PT.IPTN ---
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) Other spondylosis with radiculopathy, lumbar region (05/23/18) Spinal stenosis, lumbar region without neurogenic claudication (05/23/18) Surgery Performed Operation Date: 05/23/18 07:45 Actual Procedures p L3-4,L4-5,L5-S1 TLIF w/Posterior Lawrence Suarez MD Physical Therapy Treatment Note M2 PT-IP Current Condition Start: 05/24/18 10:55 Freq: NEEDED Status: Active Protocol: Document 05/25/18 10:01 TMS (Rec: 05/25/18 10:16 TMS [id number]) Physical Therapy Current Condition Current Condition Evaluation Date 05/24/18 Treatment Diagnosis L3-4, L4-5, L5S1 TLIF, laminectomy; difficulties in walking Onset Date 05/23/18 Precautions Lumbar Precautions Log Roll No Twisting Limit Bending Lifting Restriction of 10 lbs Gait Belt above Incisional Area Weight Bearing Status Weight Bearing Status Weight Bear as Tolerated M3 PT-IP Subjective Start: 05/24/18 10:55 Freq: NEEDED Status: Active Protocol: Document 05/25/18 10:01 TMS (Rec: 05/25/18 10:16 TMS [id number]) Subjective Physical Therapy Visit Type Type Treatment Note Visit Start Time 09:35 Visit Stop Time 09:55 Total Visit Minutes 20 Number of DOUBLE CUT SAWYER Visits 2 Physical Therapy Visit Comments Patient Comments Pt. sitting on EOB, FIBERLINE SUPERVISOR assisted with logrolling and Min-A. Pt. just woke up, RN in process of giving her pain pills. Therapy Pain Assessment Pain When Pain Assessed During Mobility Pain Present Pain Present Pain Reported Location Back Scale Used Rated pain at 0 initially, then complained of muscular pain with gait. Pain Management Techniques Distraction Timing of Activity with Medications M4 PT-IP Mobility and Gait Start: 05/24/18 10:55 Freq: NEEDED Status: Active Protocol: Document 05/25/18 10:01 TMS (Rec: 05/25/18 10:16 TMS [id number]) PT-Transfer Assessment Sit to and From Stand Sit to and from Stand Contact Guard Assistance 1 Person Assistance Use of Upper Extremities Equipment Transfer Assistive Device Front Wheeled Walker Comments Mobility Comments Pt. needed cues for hand placement with sit>stand, cues to avoid twisting with sitting and sit>stand. Gait Assessment Gait Gait Assistance Required: Contact Guard Assist 1 Person Assist Distance (Feet) (feet) 100 Able to Maintain Weight Bearing Status Yes During Gait Assistive Devices Assistive Device Gait Belt Front Wheeled Walker Orthotic/Prosthetic Devices or Brace: No Gait Deviations General Gait Pattern Antalgic Decreased Stride Length Flexed Trunk Narrow Based Gait Factors Limiting Gait Function Factors Limiting Gait Function Decreased Strength Incoordination Pain Poor Balance Poor Safety Awareness Comments Gait Comments Pt. with little complaints of pain with mobility, more complaints of back fatigue. Able to recite back precautions but doesn't follow through with them with mobility. Tends to twist a lot with gait and sitting on EOB. M5 PT-IP Objective Assessments Start: 05/24/18 10:55 Freq: NEEDED Status: Active Protocol: Document 05/24/18 09:55 AB (Rec: 05/24/18 11:03 AB [id number]) Orientation Orientation/Cognition Level of Alertness Confusional State Orientation Name Year Place Situation Safety Awareness Decreased Safety Awareness Memory Description Short Term Impaired Intermediate Impaired Gross Range of Motion Lower Extremity ROM Assessment Within Functional Limits Strength Lower Extremity Strength Assessment Bilaterally Impaired Hip 4-/5 Knee 4-/5 M6 PT-IP Treatment Start: 05/24/18 10:55 Freq: NEEDED Status: Active Protocol: Document 05/24/18 09:55 AB (Rec: 05/24/18 11:03 AB [id number]) Physical Therapy Treatment Education Education Provided Precautions Weight Bearing Status Post-Op Packet Safety M7 PT-IP Assessment and Plan Start: 05/24/18 10:55 Freq: NEEDED Status: Active Protocol: Document 05/25/18 10:01 TMS (Rec: 05/25/18 10:16 TMS [id number]) PT Summary Assessment and Plan Potential Rehabilitation Potential Fair Status of Condition at Evaluation Evolving Summary Impairments Pain ROM Strength Balance Coordination Sensation Tone Cognition Bed Mobility Transfers Gait Activity Tolerance Assessment Summary Pt. moving well but not following precautions. States brother will help with meals but will not help with any physical needds. Frequency of Treatment Frequency Of Treatment Twice a Day Treatment Plan Physical Therapy Treatment Plan Bed Mobility Training Transfer Training Gait Training Therapeutic Exercise Balance Retraining Post Op Education Discharge Planning Hot or Cold Pack Neuromuscular Re-ed Coordination Retraining Manual Therapy Other Recommendations and Next Treatment bed mobility, transfers, Focus ambulation Recommendations To Nursing Amount of Assist Needed 1 Person Assist Discharge Recommendations PT Discharge Recommendations SNF Rehab
--- NOTE | 2018-05-25 11:13 | OT.IP.TRT ---
Addendum entered and electronically signed by Nika Lynn OT 05/25/18 18:49: Pt would benefit from SNF at discharge for further education/reinforcement of lumbar spine precautions. Pt's brother cannot provide any physical assist at home. If pt d/c's home, recommend HH PT/OT/bath aide. Original Note: 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) Other spondylosis with radiculopathy, lumbar region (05/23/18) Spinal stenosis, lumbar region without neurogenic claudication (05/23/18) Surgery Performed Operation Date: 05/23/18 07:45 Actual Procedures p L3-4,L4-5,L5-S1 TLIF w/Posterior Louu - Kimberly Suarez MD Occupational Therapy Treatment Note M2 OT-IP Current Condition Start: 05/24/18 14:38 Freq: Status: Active Protocol: Document 05/24/18 15:55 PJM (Rec: 05/24/18 17:06 PJM [id number]) Occupational Therapy Current Condition Current Condition Evaluation Date 05/24/18 Treatment Diagnosis decreased self care,functional mobility s/p multi level lumbar fusion Diagnosis Onset Date 05/23/18 Post Operative Precautions Lumbar Precautions Log Roll No Twisting Limit Bending Lifting Restriction of 10 lbs Gait Belt above Incisional Area M3 OT- IP Subjective and Pain Start: 05/24/18 14:38 Freq: Status: Active Protocol: Document 05/25/18 11:13 PJM (Rec: 05/25/18 18:45 PJM [id number]) OT- Subjective Occupational Therapy Visit Type Type Treatment Note Visit Start Time 10:15 Visit Stop Time 11:13 Total Visit Minutes 58 Occupational Therapy Visit Comments Patient Comments I really want to take a shower. OT Pain Assessment Pain When Pain Assessed After Treatment Pain Present Pain Present Pain Reported Location Back Intensity 8 Scale Used Numeric (1 - 10) Description Aching Acute Spasm Pain Behaviors Facial Grimacing Guarding Restlessness Wincing Management Techniques Distraction Re-positioning Timing of Activity with Medications M4 OT- IP ADL's Start: 05/24/18 14:38 Freq: Status: Active Protocol: Document 05/25/18 11:13 PJM (Rec: 05/25/18 18:45 PJM [id number]) OT ADL-Grooming General Evaluation Grooming Ability Standby Assistance Areas Needing Assistance Retrieving/Set-up of Grooming Items Combing/Brushing Hair OT ADL-Oral Care General Eval Oral Care Ability Standby Assistance Comments Oral Care Comments Pt insists on bending forward to lean on sink despite verbal cues to stand upright OT ADL-Dressing General Eval Upper Body Dressing Ability Standby Assistance Lower Body Dressing Ability Minimal Assistance Areas Needing Assistance Retrieving/Set-up of Clothing Underpants/Brief Socks Assistive Devices Dressing Assistive Devices Teradata Architect Comments OT Dressing Comments Pt doffs socks with center medical director. Declines sock aid and able to cross foot over opposite knee with no c/o of back pain to don socks. Pt using center medical director to don and doff brief over feet and get objects off floor.Pt needs mod verbal cues for body mechanics. OT ADL-Toileting General Evaluation Toileting Ability Standby Assistance Comments OT Toileting Comments Pt needs mod verbal cues for body mechanics. OT ADL-Bathing Bathing Type Bathing Type Shower General Evaluation Bathing Ability Minimal Assistance Devices Bathing Equipment Long Handled Sponge or Residential Gas Heat Technician Held Shower Sprayer Shower Chair without Arms Grab Bars Comments OT Bathing Comments Heavy use of grab bars which pt does not have at home. Plans to sit on small stool without arms at home.Pt needs max verbal cues for body mechanics. Unorganized approach and needs verbal cues to problem solve adpated techniques e.g. use of long bath sponge. M5 OT- IP IADL's Start: 05/24/18 14:38 Freq: Status: Active Protocol: Document 05/24/18 15:55 PJM (Rec: 05/24/18 17:06 PJ [id number]) OT-Instrumental Activities of Daily Living Deficits IADL Deficits Identified Deficits Home Safety Awareness Awareness of Need for Assistance at Home Good Awareness Meal Preparation Meal Preparation Caregiver Provides Assist Meal Preparation Comments brother will assist with shopping for groceries per pt; she plans to microwave meals Rubber Goods Supervisor Rubber Goods Supervisor Caregiver Provides Assist Rubber Goods Supervisor Comments brother to assist PRN Driving Driving Caregiver Provides Assist Driving Comments brother can assist until pt able M6 OT- IP Functional Cognition Start: 05/24/18 14:38 Freq: Status: Active Protocol: Document 05/25/18 11:13 PJM (Rec: 05/25/18 18:45 PJM [id number]) Cognitive Factors Limiting Selfcare Function Cognitive Ability Level of Alertness Alert Patient Orientation Name Age Birthday Month Date Year Day of Week Place Situation Safety Awareness Decreased Ability to Apply Precautions Underestimates Need for Assistance Problem Solving Ability Unable to Identify Errors Needs Assist to Identify Solutions Executive Function Ability Unable to Filter Distractions Unable to Organize Plans Unable to Remember Details Unable to Integrate Past Experience With Present Action Abstract Thinking Ability Unable to Make Generalizations Unable to Apply Concepts to New Surroundings Unable to Apply Concepts to New Situations Cognitive Comments Cognitive Assessment Comments Pt able to state precautions but does not follow them during functional taks. Even with verbal cues, sometimes pt declines to avoid forward bending. Pt distracts self wtih conversation. Presents with decreased insight and problem solving. M7 OT- IP Mobility and Balance Start: 05/24/18 14:38 Freq: Status: Active Protocol: Document 05/25/18 11:13 PJM (Rec: 05/25/18 18:45 PJM [id number]) OT- Bed Mobility Assessment Rolling Type of Rolling Log Rolling Roll to Right Level of Assistance Contact Guard Assistance Supine to Sit Supine to Sit Assist Standby Assistance Sit to Supine Sit to Supine Assist Minimal Assistance Scooting Scooting to Edge of Bed Independent OT-Transfer Assessment Sit to and From Stand Sit to and from Stand Standby Assistance Transfers Transfer Ability Contact Guard Assistance Technique Transfer Destination Bed Shower Stall Toilet Transfer Technique Stand Step Pivot Devices Transfer Assistive Devices Gait Belt Front Wheeled Walker Comments Mobility Comments Pt needs mod to max cues for log rolling technique; restless in bed with frequent position changes with twisting noted depsite verbal cues. OT- Gait Assessment Gait Gait Assistance Required: Contact Guard Assist Distance (Feet) (feet) 25 Assistive Devices Assistive Device Gait Belt Front Wheeled Walker Comments Gait Ability Comments CGa to close SBA for safety due to decreased attention to task; tends to leave FWW behind at times OT- Balance Assessment Sitting Balance and Reactions Static Sitting Balance Ability Good Dynamic Sitting Balance Ability Good Standing Balance and Reactions Static Standing Balance Ability Good Dynamic Standing Balance Ability Fair Comments Other Balance Tests/Deviations/Treatment standing with FWW : M8 OT- IP Objective Assessments Start: 05/24/18 14:38 Freq: Status: Active Protocol: Document 05/24/18 15:55 PJM (Rec: 05/24/18 17:06 PJM [id number]) OT Gross Range of Motion Upper Extremity Range of Motion Assessment Within Functional Limits OT Strength Upper Extremity Strength Assessment Within Functional Limits OT- Coordination Assessment Comments Coordination Comments BUE WFL OT-Muscle Tone Assessment Muscle Tone WNL Yes OT Sensation Assessment Comments Summary Comments Pt denies deficits in BUE's M9 OT- IP Assessment and Plan Start: 05/24/18 14:38 Freq: Status: Active Protocol: Document 05/25/18 11:13 PJM (Rec: 05/25/18 18:45 PJM [id number]) OT Summary Assessment and Plan Summary OT Impairments Pain Balance Functional Cognition Functional Mobility Dressing Toileting Bathing Toilet Transfers Shower Transfers Progress Towards Goals Slow Progress due to Pain Slow Progress due to Cognition Assessment Summary Pt presents with significant difficulty applying lumbar spine precautions and follows them < 50% of the time, even with verbal cuing. Decreased insight into safety issues noted and pt underestimates need for assist with tasks such as bathing after d/c. Despite inability to follow precautions, pt's activity tolerance is improving daily. Pt needs to be indep with mobility, transfers, dressing, toileting to return home with brother who will not provide physical assist. Pt states her niece can assist with bathing , but has not yet confirmed this with niece. Recommend HH OT/PT/bath aide at d/c. Goals Grooming Goal Independent Dressing Goal Independent Teradata Architect Toileting Goal Independent Toilet Transfer Goal Independent Raised Toilet Seat With Rails Shower Transfer Goal Contact Guard Assistance Patient/Caregiver Education Goal Demonstrate Post-Op Precautions OT-Other Goals Grooming to be completed standing at sink. Days to Meet Goals 3 Frequency of Treatment Frequency Of Treatment Once a Day Treatment Plan OT Treatment Plan ADL Training Functional Mobility Patient/Family Education Discharge Planning Other Treatment Recommendations and Next grooming at sink, LB dressing Treatment Focus w/AED Discharge Recommendations OT Discharge Recommendations Home with Assistance Home Health Home Equipment Needs center medical director, long bath sponge were provided, raised toilet seat
[2018-05-25] MEDS: ACETAMINOPHEN 325 MG TABLET 650 MG PO (11:19)
--- NOTE | 2018-05-25 15:46 | PT.IPTN ---
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) Other spondylosis with radiculopathy, lumbar region (05/23/18) Spinal stenosis, lumbar region without neurogenic claudication (05/23/18) Surgery Performed Operation Date: 05/23/18 07:45 Actual Procedures p L3-4,L4-5,L5-S1 TLIF w/Posterior Lawrence - Kimberly Suarez MD Physical Therapy Treatment Note M2 PT-IP Current Condition Start: 05/24/18 10:55 Freq: NEEDED Status: Active Protocol: Document 05/25/18 10:01 TMS (Rec: 05/25/18 10:16 TMS [id number]) Physical Therapy Current Condition Current Condition Evaluation Date 05/24/18 Treatment Diagnosis L3-4, L4-5, L5S1 TLIF, laminectomy; difficulties in walking Onset Date 05/23/18 Precautions Lumbar Precautions Log Roll No Twisting Limit Bending Lifting Restriction of 10 lbs Gait Belt above Incisional Area Weight Bearing Status Weight Bearing Status Weight Bear as Tolerated M3 PT-IP Subjective Start: 05/24/18 10:55 Freq: NEEDED Status: Active Protocol: Document 05/25/18 15:40 GGD (Rec: 05/25/18 15:46 GGD [id number]) Subjective Physical Therapy Visit Type Type Patient Refusal Notes Pt states she is tired after a shower and would like to rest. Other Recommendations and Next Treatment bed mobility, transfers, Focus ambulation Recommendations To Nursing Amount of Assist Needed 1 Person Assist Discharge Recommendations PT Discharge Recommendations SNF Rehab
[2018-05-25] MEDS: SIMVASTATIN 40 MG TABLET PO (20:52)
[2018-05-25] MEDS: SENNOSIDES 8.6 MG TABLET 17.2 MG PO (20:52)
[2018-05-26 00:17] VITALS: BP 112/60; PULSE 85; RESP 16; TEMP 37.1; O2SAT 99
[2018-05-26] MEDS: OXYCODONE IR 5 MG TABLET 10 MG PO ×4 (00:31→12:07)
[2018-05-26 04:38] VITALS: BP 136/75; PULSE 100; RESP 18; TEMP 36.9; O2SAT 97
[2018-05-26 06:23] LABS: Hematocrit 27.1 % (36-46); Hemoglobin 9.1 g/dL (12.0-16.0)
[2018-05-26 08:00] VITALS: BP 141/78; PULSE 102; RESP 18; TEMP 36.5; O2SAT 100
--- NOTE | 2018-05-26 08:27 | CM.DPNOTE ---
DCP: Case received, EMR reviewed and spoke with ortho DAIANA Eugene re POC. She notes there is discussion re home vs snf and plans to d/c pt today. Spoke with OT re case. She had just finished her review of all therapy notes and confirms pt is up mobilizing. Concern is that she does not follow her post spinal surgery precautions. DAIANA Eugene agrees, says is not dementia but she is just resistant to suggestions. Met with pt to discuss. Pt notes that her daily copay from [facility] is adding up, she wants to go home today and is frustrated they won't let me get up. They all keep hovering because they think I will fall. She confirms she and her brother Ed live together. He is there to support me. He just won't be helping me do things and I really don't want him to. She confirms he will be picking her up. Pt does not want snf and especially as I would have to pay for it. Explained [facility] snf benefit but with pt moving at [facility] to [facility] it is highly doubtful that snf would be authorized for this planned surgery. Discussed same with PRATIK Farmer and DAIANA Eugene. PA planning to write HH orders for PT/OT and BOX C[employer] HAND. Face/Face per Dr. Suarez is completed and will get all faxed to [facility] when completed. Will call [facility] now to alert to pending d/c today.
--- NOTE | 2018-05-26 08:42 | P.DS_ITS ---
History of Present Illness Date Patient Seen: 05/26/18 Time Patient Seen: 08:00 Chief complaint: L3-4 L4-5 L5-S1 TLIF w/posterior instr-see notes Narrative: Patient seen bedside s/p L3-4, L4-5, L5-S1 TLIF with posterior instrumentation POD #3. Patient doing well, her pain is well tolerated and she has been up and moving with PT. She does have some difficulty following spine precautions. Her H/H is stable today and she would like to go home. Discharge Providers Date of admission: 05/23/18 06:59 Primary care physician: SUMI Finley Consults: 05/23/18 14:05 Consult to Occupational Therapy Evaluate & Treat Comment: Physician Instructions: Evaluate and treat Consult to Physical Therapy Evaluate & Treat Comment: Physician Instructions: Evaluate and Treat 05/23/18 14:20 Consult to Respiratory Therapy Evaluate & Treat Comment: Physician Instructions: Evaluate and treat 05/26/18 07:27 Consult to Discharge Planning NOW Comment: SNF vs. Discharge provider: Valorie Goodson PA-C Summary Discharge Diagnosis: Lumbar spinal stenosis Hospital Course: Patient was admitted status post L3-4, L4-5, L5-S1 TLIF with posterior instrumentation on 05/23/2018. Patient tolerated procedure well was transferred to the surgical floor. She has worked with Physical therapy and Occupational therapy who recommended she be discharged home with home health. She had some anemia postoperatively but as of 05/26/18 her H&H stabilized. She is ready to be discharged home with home health. Status at Discharge Cognitive/behavioral status at discharge: Alert and oriented x3 Functional status at discharge: uses cane/walker Overall status at discharge: patient is progressing back to baseline Time Spent with Patient Less than 30 minutes Exam Vital Signs (past 8 hours): - 05/26/18 04:38 Temperature 98.5 F Pulse Rate 100 H Respiratory Rate 18 Blood Pressure 136/75 H Pulse Oximetry 97 Oxygen Delivery Method Room Air Oxygen Flow Rate 0 Narrative Exam Narrative: The patient is well-developed well-nourished in no acute distress. Patient alert oriented x3. On examination the patient has full range of motion at the ankle and full sensation in her bilateral lower extremities extremities. Calves are soft and compressible. Dressing clean dry and intact Objective Labs Result Diagrams: 05/26/18 05:32 Labs: Laboratory Results - last 24 hr 05/26/18 05:32 Hgb 9.1 L Hct 27.1 L Discharge Plan Discharge Plan Patient Disposition: Home Health Service Discharge Med Rec/Prescriptions Prescriptions: New ascorbic acid (vitamin C) [Vitamin C] 500 mg Tablet 500 mg PO DAILY Qty: 0 RF: 0 ferrous sulfate 325 mg (65 mg iron) Tablet 325 mg PO DAILY 30 Days RF: 0 docusate sodium 100 mg Capsule 100 mg PO BID Qty: 0 RF: 0 oxycodone 5 mg Tablet 5 mg PO Q4H PRN (Reason: pain) Qty: 60 RF: 0 hydroxyzine pamoate 25 mg Capsule 25 mg PO Q4HR PRN (Reason: Nausea And Vomiting) Qty: 30 RF: 0 Continue losartan 50 mg Tablet 50 mg PO QAM RF: 0 fluoxetine 40 mg Capsule 40 mg PO DAILY RF: 0 metformin 500 mg Tablet 500 mg PO BID RF: 0 simvastatin 40 mg Tablet 40 mg PO QPM RF: 0 dicyclomine 20 mg Tablet 40 mg PO BID RF: 0 pantoprazole 40 mg Tablet,Delayed Release (Dr/Ec) 40 mg PO DAILY RF: 0 qjjalyagke-yngwbbaumnnyr-hlkj 50-300-40 mg Capsule 1 - 2 cap PO Q4H PRN (Reason: Headache) RF: 0 bismuth subsalicylate [Pepto-Bismol] 262 mg Tablet 4 tab PO BID RF: 0 Discontinued [id number]-cgggjjtefxmdp-tbrizmta [Excedrin Extra Strength] 250-250-65 mg Tablet 3 - 4 tab PO Q4-6H PRN (Reason: headaches) RF: 0 Follow up/Referrals: [facility] [Provider Group] - 06/03/18 1:30 pm (Marie Davila, [facility]) Provider Discharge Instructions Diet: Carb-consistent/Diabetic Activity: WBAT, follow precautions regarding twisting/bending Wound Care Report to your healthcare provider any signs of infection, such as:: chills, fever, night sweats, increased pain and unusual drainage Dressing: Keep dressing clean, dry, and intact until post-operative visit. Visit Report/Discharge Packet Instructions: DI for Transforaminal Lumbar Interbody Fusion Discharge Data Primary Care Provider: Chelsie Her Attending Provider: Kimberly Suarez Admit Date/Time: 05/23/18 06:59 Quality VTE Deep Vein Thrombosis/Pulmonary Embolism Present on Admission: No
[2018-05-26] MEDS: DICYCLOMINE 10 MG CAPSULE 40 MG PO (08:52)
[2018-05-26] MEDS: PANTOPRAZOLE 40 MG TABLET PO (08:52)
[2018-05-26] MEDS: ASCORBIC ACID 500 MG TABLET PO (08:52)
[2018-05-26] MEDS: METFORMIN HCL 500 MG TABLET PO (08:52)
[2018-05-26] MEDS: FLUoxetine 20 MG CAPSULE 40 MG PO (08:52)
[2018-05-26] MEDS: LOSARTAN 50 MG TABLET PO (08:52)
[2018-05-26] MEDS: FERROUS SULFATE 325 MG TABLET PO (08:52)
--- NOTE | 2018-05-26 09:30 | PT.IPTN ---
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) Other spondylosis with radiculopathy, lumbar region (05/23/18) Spinal stenosis, lumbar region without neurogenic claudication (05/23/18) Surgery Performed Operation Date: 05/23/18 07:45 Actual Procedures p L3-4,L4-5,L5-S1 TLIF w/Posterior Lawrence Suarez MD Physical Therapy Treatment Note M2 PT-IP Current Condition Start: 05/24/18 10:55 Freq: NEEDED Status: Active Protocol: Document 05/25/18 10:01 TMS (Rec: 05/25/18 10:16 TMS [id number]) Physical Therapy Current Condition Current Condition Evaluation Date 05/24/18 Treatment Diagnosis L3-4, L4-5, L5S1 TLIF, laminectomy; difficulties in walking Onset Date 05/23/18 Precautions Lumbar Precautions Log Roll No Twisting Limit Bending Lifting Restriction of 10 lbs Gait Belt above Incisional Area Weight Bearing Status Weight Bearing Status Weight Bear as Tolerated M3 PT-IP Subjective Start: 05/24/18 10:55 Freq: NEEDED Status: Active Protocol: Document 05/26/18 09:00 GGD (Rec: 05/26/18 10:45 GGD [id number]) Subjective Physical Therapy Visit Type Type Treatment Note Visit Start Time 09:00 Visit Stop Time 09:30 Total Visit Minutes 30 Number of DENITRATOR Visits 3 Physical Therapy Visit Comments Patient Comments Pt willing to work with PT. Therapy Pain Assessment Pain When Pain Assessed During Mobility Pain Present Pain Present Pain Reported Location Back Intensity 6 Scale Used Numeric (1 - 10) Pain Behaviors Guarding Moaning Restlessness Pain Management Techniques Re-positioning M4 PT-IP Mobility and Gait Start: 05/24/18 10:55 Freq: NEEDED Status: Active Protocol: Document 05/26/18 09:00 GGD (Rec: 05/26/18 10:45 GGD [id number]) PT-Bed Mobility Assessment Rolling Type of Rolling Log Rolling Level of Assist Contact Guard Assistance Supine to Sit Supine to Sit Contact Guard Assistance Sit to Supine Sit to Supine Contact Guard Assistance Scooting Scooting to Edge of Bed Standby Assistance PT-Transfer Assessment Sit to and From Stand Sit to and from Stand Contact Guard Assistance Use of Upper Extremities Equipment Transfer Assistive Device Front Wheeled Walker Comments Mobility Comments Pt need mod to max cues for full log roll and safe transfers, hand placement and safety with FWW. Gait Assessment Gait Gait Assistance Required: Contact Guard Assist 1 Person Assist Distance (Feet) (feet) 100 Able to Maintain Weight Bearing Status Yes During Gait Assistive Devices Assistive Device Gait Belt Front Wheeled Walker Orthotic/Prosthetic Devices or Brace: No Gait Deviations General Gait Pattern Antalgic Decreased Stride Length Flexed Trunk Narrow Based Gait Factors Limiting Gait Function Factors Limiting Gait Function Decreased Activity Tolerance Decreased Strength Difficulty Following Directions Pain Poor Safety Awareness Stair Climbing Assessment Evaluation Level of Assist On Stairs Contact Guard Assistance Minimal Assistance Devices Stair Climbing Assistive Devices Straight Cane Left Railing Technique/Endurance Stair Climbing Direction Ascend and Descend Stair Climbing Technique Step to Step Number of Steps Climbed 3 Query Text: Stair Climbing Set # Repetitions (reps) 1 Comments Stair Climbing Comments Pt need mod cues for stair mobility. She ascending stairs with CGA and SPC. Descend with Left rail and min A. M5 PT-IP Objective Assessments Start: 05/24/18 10:55 Freq: NEEDED Status: Active Protocol: Document 05/24/18 09:55 AB (Rec: 05/24/18 11:03 AB [id number]) Orientation Orientation/Cognition Level of Alertness Confusional State Orientation Name Year Place Situation Safety Awareness Decreased Safety Awareness Memory Description Short Term Impaired Usp Impaired Gross Range of Motion Lower Extremity ROM Assessment Within Functional Limits Strength Lower Extremity Strength Assessment Bilaterally Impaired Hip 4-/5 Knee 4-/5 M6 PT-IP Treatment Start: 05/24/18 10:55 Freq: NEEDED Status: Active Protocol: Document 05/24/18 09:55 AB (Rec: 05/24/18 11:03 AB [id number]) Physical Therapy Treatment Education Education Provided Precautions Weight Bearing Status Post-Op Packet Safety M7 PT-IP Assessment and Plan Start: 05/24/18 10:55 Freq: NEEDED Status: Active Protocol: Document 05/26/18 09:00 GGD (Rec: 05/26/18 10:45 GGD [id number]) PT Summary Assessment and Plan Summary Assessment Summary pt able to recall 2/3 back precautions, but not able to follow with mobility. She improving with mobility, but has poor safety awareness. She leaves FWW, twists and unsafe with transfers. Frequency of Treatment Frequency Of Treatment Twice a Day Treatment Plan Other Recommendations and Next Treatment bed mobility, transfers, Focus ambulation Recommendations To Nursing Amount of Assist Needed 1 Person Assist Discharge Recommendations PT Discharge Recommendations SNF Rehab
--- NOTE | 2018-05-26 10:52 | PC.NURSE ---
Addendum entered by Brunilda Castro R.N. 05/26/18 14:12: Pt wanted to d/c to home. Did not want to stay in hospital. Asked to wear gown home as it was too difficult for her to change clothes. PIV removed prior to d/c. d/c instructions provided to pt and her sister. Pt aware of f/u apt with PA in clinic. notified to contact MD if any additional questions or concerns arrise. Rx provided to pt at d/c. Pt reports she took all belongings with her including meds from pharmacy. Pt did get dressed in her clothes. Became very nauseated and started retching. Went to lean over the toilet. provided pt with a bag instead of leaning over toilet but she is still arching back. reminded pt to follow precautions and she became upset stating that she wanted to get the F* out of here. Per sister and pt, the retching is pt's normal. Did not notify MD of nausea as pt stated she was going home regardless, she was not staying in the hospital another night. Original Note: day shift arrived on shift and pt set off bed alarm. She wanted to go to the bathroom but did not use call light. observed pt sitting up and standing with walker. encouraged pt to move slowly however she seems to move faster. did observe her twisting to wipe herself and hunching down over her walker. reminded pt to follow precautions however she doesn't remember or really acknowledge that you are telling her not to do something. while walking, her leg buckled one time from pain in her back. returned to bed and she refused to lay down, only wanted to sit on edge of bed. would not go to chair. asked pt to use call light when she wanted to lay down which she agreed to. Bed alarm turned on. went to round on pt about 30 min later and she was back in bed, did not use call light but had not set off alarm. She was laying in bed with her back twisted, hips to right and shoulders to left. Reminded pt to keep back straight and she rolled onto her back but further twisted her back in the process. medicated with 10 mg oxy, states pain decreased from 8/10 to 0/10. will continue to monitor.
[2018-05-26 12:00] VITALS: BP 122/66; PULSE 90; RESP 16; TEMP 36.4; O2SAT 97
== END 2018-05-26 14:35 | disposition home health service (06) | DRG 454 ==
PROVIDERS: Physician Assistant; Admitting Provider Orthopaedic Surgery Orthopaedic Surgery of the Spine; PCP Nurse Practitioner; Visit Provider Orthopaedic Surgery Orthopaedic Surgery of the Spine
PROC: 0SG10AJ Fusion of 2 or more Lumbar Vertebral Joints with Interbody Fusion Device, Posterior Approach, Anterior Column, Open Approach (ICD-10-PCS; principal; 2018-05-23 07:45)
DX: M48.061 Spinal stenosis, lumbar region without neurogenic claudication (principal); D62 Acute posthemorrhagic anemia; M47.26 Other spondylosis with radiculopathy, lumbar region; M41.56 Other secondary scoliosis, lumbar region; E11.9 Type 2 diabetes mellitus without complications; Z79.84 Long term (current) use of oral hypoglycemic drugs; F17.200 Nicotine dependence, unspecified, uncomplicated; I10 Essential (primary) hypertension; N28.9 Disorder of kidney and ureter, unspecified; M48.07 Spinal stenosis, lumbosacral region
CPT/HCPCS: 36415; 72100; 76001; 82962; 85014; 85018; 97116; 97162; 97165; 97530; 97535; 99406; C1776; C9290; J0131; J0330; J0690; J1170; J2250; J2405; J2704; J2765; J3010

== ENCOUNTER 2024-08-03 18:51 | Emergency (ER) | payer OTHER, SELFPAY ==
[2018-05-23 14:20] VITALS: BMI 30.4
[2024-08-03] VITALS (13 sets, daily range): BP systolic 97–127; BP diastolic 49–78; PULSE 45–75; RESP 18; TEMP 36.9; O2SAT 73–100; BMI 20.7
--- NOTE | 2024-08-03 19:25 | DI.US.S_ITS ---
PROCEDURE: US ABDOMEN LIMITED INDICATIONS: jaundice/abdominal pain TECHNIQUE: Real-time focused scanning was performed of the abdomen, with image documentation. COMPARISON: None. FINDINGS: Liver measures 16 cm. Gallbladder is absent. Distended biliary system measuring up to 1.7 cm at the CBD. Possible pancreatic mass measuring 3.2 x 4.1 cm. IMPRESSION: Distended biliary system measuring up to 1.7 cm in the CBD. Possible pancreatic head mass. Dictated by: Sundeep Ferreira M.D. on 08/03/2024 at 21:48 Approved by: Sundeep Ferreira M.D. on 08/03/2024 at 21:49
[2024-08-03 19:39] LABS: Add Manual Diff / Slide Review NO; Basophils Absolute Auto 100 /uL (0-100); Basophils Percent Auto 0.9 % (0-2); Eosinophils Absolute Auto 100 /uL (0-450); Hematocrit 31.3 % (36-46); Hemoglobin 10.7 g/dL (12.0-16.0); Lymphocytes Absolute Auto 2500 /uL (1100-4500); Lymphocytes Percent Auto 37.3 % (25-40); Mean Corpuscular HGB Conc 34.3 % (30-36); Mean Corpuscular Hemoglobin 31.4 PG (26-34); Mean Corpuscular Volume 91.7 fL (80-100); Monocytes Absolute Auto 500 /uL (0-900); Monocytes Percent Auto 7.7 % (3-14); Neutrophils Absolute Auto 3500 /uL (1500-7000); Neutrophils Percent Auto 52.1 % (50-75); Platelet Count 333 X10^3/uL (150-400); Red Blood Cell Count 3.42 X10^6/uL (4.0-5.2); Red Cell Distribution Width 13.7 % (11.6-14.8); White Blood Cell Count 6.8 X10^3/uL (4.5-11.0)
[2024-08-03 19:49] LABS: Ammonia (NH3) < 9 umol/L (9-30)
[2024-08-03 19:50] LABS: Alanine Aminotransferase 100 IU/L (<35); Albumin 3.9 g/dL (3.5-5.0); Albumin Globulin Ratio 1.1 (1.0-2.8); Alkaline Phosphatase 989 U/L (38-126); Aspartate Aminotransferase 74 IU/L (14-36); BUN Creatinine Ratio 18.5 (6-22); Bilirubin Total 8.9 mg/dL (0.2-1.3); Blood Urea Nitrogen 22 mg/dL (7-17); Calcium 9.3 mg/dL (8.4-10.2); Carbon Dioxide 26 mmol/L (22-32); Chloride 90 mmol/L (98-107); Estimated Glomerular Filt Rate 47 mL/min (>60); Globulin 3.4 g/dL (1.7-4.1); Glucose 235 mg/dL (80-110); HEMOLYSIS < 15 (0-50); Lipase 295 U/L (23-300); Potassium 4.2 mmol/L (3.4-5.1); Sodium 125 mmol/L (137-145); Total Protein 7.3 g/dL (6.3-8.2)
[2024-08-03 19:54] LABS: Acetaminophen < 10 ug/mL (10-30); Ethanol (ETOH) < 10 mg/dL
--- NOTE | 2024-08-03 20:05 | ED.GENADULT ---
HPI - General Adult General Chief complaint: Abdominal Pain Stated complaint: thinks she has ulcers Time Seen by Provider: 08/03/24 20:05 Source: patient Mode of arrival: Ambulatory History of Present Illness HPI narrative: 78-year-old woman with a history of chronic migraines, depression, hypertension, diabetes, reflux, hyperlipidemia, sleep issues has been having increasing abdominal pain over ?awhile?. She notes she is ?lost a lot of weight?. She also states she has collagenous colitis with intermittent diarrhea and constipation. She has been having increasing epigastric pain and believes she has not ulcer. She has not having any black stool no vomiting no obvious bloody emesis. No fevers or chills, no recent headaches, chest pain orthopnea or dyspnea Related Data Home Medications Medication Instructions Recorded Confirmed [id number] 1 - 2 cap PO Q4H PRN Headache 05/19/18 05/23/18 50 mg-300 mg-40 mg capsule dicyclomine 20 mg tablet 40 mg PO BID 05/19/18 05/23/18 fluoxetine 40 mg capsule 40 mg PO DAILY 05/19/18 05/23/18 losartan 50 mg tablet 50 mg PO QAM 05/19/18 05/23/18 metformin 500 mg tablet 500 mg PO BID 05/19/18 05/23/18 pantoprazole 40 mg tablet,delayed 40 mg PO DAILY 05/19/18 05/23/18 release simvastatin 40 mg tablet 40 mg PO QPM 05/19/18 05/19/18 bismuth subsalicylate 262 mg 4 tab PO BID colitis 05/20/18 05/23/18 tablet (Pepto-Bismol) Previous Rx's Medication Instructions Recorded ascorbic acid (vitamin C) 500 mg 500 mg PO DAILY #0 tabs 05/26/18 tablet (Vitamin C) docusate sodium 100 mg capsule 100 mg PO BID #0 caps 05/26/18 hydroxyzine pamoate 25 mg capsule 25 mg PO Q4HR PRN Nausea And 05/26/18 Vomiting #30 caps oxycodone 5 mg tablet 5 mg PO Q4H PRN pain #60 tabs 05/26/18 Allergies Allergy/AdvReac Type Severity Reaction Status Date / Time aspirin AdvReac Severe stomach Verified 05/19/18 12:58 ulcer lisinopril AdvReac Hyerkalemia Verified 05/19/18 12:58 Review of Systems Review of Systems Narrative: Pertinent positive and negative findings as per HPI Patient History Medical History Postoperative anemia Diarrhea Chronic headaches GERD (gastroesophageal reflux disease) Depression Heel abrasion Diabetes Decreased vibratory sense Renal tubular acidosis Chronic hyperkalemia Hyperlipidemia HTN (hypertension) Back pain Surgical History Hx of cone biopsy of cervix Hx of cholecystectomy History of hysterectomy Social History household members: family Smoking Status: Current every day smoker alcohol intake: current Smoking Status: Current every day smoker tobacco type: cigarettes alcohol intake frequency: 0-2 drinks per day Substance Use Type: marijuana Exam Initial Vital Signs Initial Vital Signs: Vital Signs Temperature 98.5 F 08/03/24 19:07 Pulse Rate 75 08/03/24 19:07 Respiratory Rate 18 08/03/24 19:07 Blood Pressure 110/52 L 08/03/24 19:07 Pulse Oximetry 98 08/03/24 19:07 Oxygen Delivery Method Room Air 08/03/24 19:07 General: Frail, chronically ill-appearing, jaundiced in pain but able to cooperate with exam and history HEENT: Moist mucous membranes, icteric sclera with reactive pupils, Respiratory: Lungs are clear to auscultation, no wheezing no rales no rhonchi. Full and symmetrical air movement Cardiac: Regular rate and rhythm no murmurs no bruits Abdomen: Firmness over the epigastrium with significant pain, pain throughout the entire abdomen with firmness again over the lower abdomen just under the umbilicus Skin: Jaundice but otherwise Warm and dry Neurologic: Globally weak but Grossly neurologically intact with no obvious asymmetries or abnormalities Extremities: No trauma, no lower extremity Psych: Cooperative, appropriate insight and affect Course Orders Ordered: ED Orders 08/03/24 19:13 EKG-12 Lead Stat 08/03/24 19:25 US abdomen limited Stat 08/03/24 19:30 Acetaminophen Stat Ammonia (NH3) Stat Complete Blood Count AUTO DIFF Stat Comprehensive Metabolic Panel Stat Ethanol (ETOH) Stat Lipase Stat 08/03/24 20:52 CT abdomen pelvis w con Stat 08/03/24 23:05 Ictotest Urine Stat Urine Culture Stat Urine Microscopic Stat Hydromorphone HCl (Hydromorphone 0.5 Mg Inj) 0.5 mg IV Q15MIN PRN PRN Reason: Pain, Last Admin: 08/03/24 21:53 Dose: 0.5 mg Documented By: Admin: 08/03/24 21:20 Dose: 0.5 mg Documented By: RACHEL Ondansetron HCl (Ondansetron 4 Mg/2 Ml Inj) 4 mg IV NOW PRN PRN Reason: Nausea And Vomiting Ondansetron HCl (Ondansetron 4 Mg Odt) 4 mg PO NOW PRN PRN Reason: Nausea And Vomiting Discontinued Medications Sodium Chloride (Normal Saline 0.9%) 1,000 mls @ 1,000 mls/hr IV BOLUS ONE Stop: 08/03/24 22:03 Last Infusion: 08/03/24 23:00 Dose: Infused Documented By: Admin: 08/03/24 21:19 Dose: 1,000 mls/hr Documented By: RACHEL Ondansetron HCl (Ondansetron 4 Mg/2 Ml Inj) 4 mg IV NOW ONE Stop: 08/03/24 21:05 Last Admin: 08/03/24 21:19 Dose: 4 mg Documented By: RACHEL Vital Signs Vital signs: Vital Signs - 8 hr 08/03/24 19:07 08/03/24 19:55 08/03/24 19:55 Temperature 98.5 F Pulse Rate 75 68 Respiratory Rate 18 Blood Pressure 110/52 L 104/52 L Pulse Oximetry 98 98 Oxygen Delivery Method Room Air 08/03/24 20:00 08/03/24 20:00 08/03/24 20:30 Temperature Pulse Rate 66 67 Respiratory Rate Blood Pressure 100/50 L Pulse Oximetry 100 100 Oxygen Delivery Method 08/03/24 20:31 08/03/24 20:31 08/03/24 21:00 Temperature Pulse Rate 67 69 Respiratory Rate Blood Pressure 105/51 L Pulse Oximetry 98 100 Oxygen Delivery Method 08/03/24 21:01 08/03/24 21:01 08/03/24 21:48 Temperature Pulse Rate 69 62 Respiratory Rate Blood Pressure 127/78 Pulse Oximetry 98 100 Oxygen Delivery Method 08/03/24 21:48 08/03/24 22:00 08/03/24 22:00 Temperature Pulse Rate 62 Respiratory Rate Blood Pressure 106/54 L 97/49 L Pulse Oximetry 95 Oxygen Delivery Method 08/03/24 22:30 08/03/24 22:30 Temperature Pulse Rate 61 Respiratory Rate 18 Blood Pressure 111/55 L Pulse Oximetry 100 Oxygen Delivery Method Medical Decision Making Lab Data 08/03/24 19:30 08/03/24 19:30 Labs: Lab Results 08/03/24 Range/Units 19:30 WBC 6.8 (4.5-11.0) X10^3/uL RBC 3.42 L (4.0-5.2) X10^6/uL Hgb 10.7 L (12.0-16.0) g/dL Hct 31.3 L (36-46) % MCV 91.7 (80-100) fL MCH 31.4 (26-34) PG MCHC 34.3 (30-36) % RDW 13.7 (11.6-14.8) % Plt Count 333 (150-400) X10^3/uL Neut % (Auto) 52.1 (50-75) % Lymph % (Auto) 37.3 (25-40) % [place] % (Auto) 7.7 (3-14) % Eos % (Auto) 2.0 (2-4) % Baso % (Auto) 0.9 (0-2) % Neut # (Auto) 3500 (8995-4725) /uL Lymph # (Auto) 2500 (7087-9749) /uL [place] # (Auto) 500 (0-900) /uL Eos # (Auto) 100 (0-450) /uL Baso # (Auto) 100 (0-100) /uL Sodium 125 L (137-145) mmol/L Potassium 4.2 (3.4-5.1) mmol/L Chloride 90 L (98-107) mmol/L Carbon Dioxide 26 (22-32) mmol/L BUN 22 H (7-17) mg/dL Creatinine 1.19 H (0.52-1.04) mg/dL Estimated GFR 47 L (>60) mL/min BUN/Creatinine Ratio 18.5 (6-22) Glucose 235 H (80-110) mg/dL Calcium 9.3 (8.4-10.2) mg/dL Total Bilirubin 8.9 H (0.2-1.3) mg/dL AST 74 H (14-36) IU/L ALT 100 H (<35) IU/L Alkaline Phosphatase 989 H (38-126) U/L Ammonia < 9 L (9-30) umol/L Total Protein 7.3 (6.3-8.2) g/dL Albumin 3.9 (3.5-5.0) g/dL Globulin 3.4 (1.7-4.1) g/dL Albumin/Globulin Ratio 1.1 (1.0-2.8) Lipase 295 (23-300) U/L Acetaminophen < 10 (10-30) ug/mL Ethyl Alcohol < 10 ( - 10) mg/dL Urine Dip Bedside Urine Glucose Negative Bedside Urine Bilirubin + 1 Bedside Urine Ketone - Negative Urine Specific [place] 1.005 Bedside Urine Occult Blood - Negative Bedside Urine pH 6.0 Bedside Urine Protein +/- 15 Bedside Urine Urobilinogen - Negative Bedside Urine Nitrite - Negative Bedside Urine Leukocytes + 70 Esterase Point of care testing: Urine Dip Bedside Urine Glucose Negative Bedside Urine Bilirubin + 1 Bedside Urine Ketone - Negative Urine Specific [place] 1.005 Bedside Urine Occult Blood - Negative Bedside Urine pH 6.0 Bedside Urine Protein +/- 15 Bedside Urine Urobilinogen - Negative Bedside Urine Nitrite - Negative Bedside Urine Leukocytes + [address] scan - abdomen/pelvis: Radiologist's Impression: PROCEDURE: CT ABDOMEN PELVIS W CON INDICATIONS: likely new pancreatic head mass TECHNIQUE: After the administration of intravenous contrast, axial sections acquired from the lung bases to the pubic symphysis. Coronal and sagittal reformats were performed. For radiation dose reduction, the following was used: automated exposure control, adjustment of mA and/or kV according to patient size. COMPARISON: [facility], CT, CT CHEST WITHOUT CONTRAST, 11/29/2023, 16:26. FINDINGS: Image quality: Diagnostic Lower chest: Lower lung atelectasis/scarring. Liver: No definite solid mass Gallbladder and biliary system: Marked biliary dilation. Gallbladder is absent Pancreas: Pancreatic ductal dilation distal atrophy. Pancreatic head mass measures 3.1 x 2.4 x 2.9 cm. This encases and narrows the portal confluence. This also involves the common hepatic artery and GDA. This abuts the SMA. The SMV is occluded. Spleen: Indeterminate subcentimeter superior pole lesion, too small to characterize Adrenals: No discrete nodules Kidneys: Right greater than left atrophy. Right upper pole renal cyst. Vessels and lymph nodes: There are portal venous varices. No abdominal aortic aneurysm. Indeterminate borderline enlarged upper abdominal lymph nodes, for example portal caval node measures 1.1 cm in short axis Bowel and peritoneum: Increased fecal loading. Unal-ha-nphsdxst hiatal hernia. No small bowel obstruction. No drainable ascites Body wall: Unremarkable Pelvis: Bladder is unremarkable. Uterus is absent Bones: There are degenerative changes. Lumbosacral fusion hardware. Age-indeterminate height loss of L1. This was seen previously IMPRESSION: Pancreatic head mass with ductal dilation and pancreatic parenchymal atrophy compatible with adenocarcinoma. This is not resectable, vascular involvement described above. The SMV is occluded with some portal venous collaterals. Indeterminate mildly enlarged upper abdominal lymph nodes. Other findings above. Increased fecal loading incidentally noted. No acute small bowel obstruction Dictated by: Sundeep Ferreira M.D. on 08/03/2024 at 22:49 MDM Narrative Medical decision making narrative: CC: Abdominal pain, went to urgent care initially they sent her to the ER because they were concerned with jaundice Complicating co-morbidities: Weight loss, abdominal pain, jaundice, depression, hypertension, diabetes, Data collected from: patient Medical records reviewed: Patient has a list of medications from her primary physician with her this is reviewed Differential considered: Pancreatic mass, choledocholithiasis, ascending cholangitis, carcinomatosis Exam documented above, pertinent findings include: Acutely ill-appearing woman jaundice significant abdominal pain concern for significant metastatic disease Lab Test results independently reviewed as above. Pertinent findings: CBC shows normal white count, chronic stable anemia Chemistries are notable for hyponatremia at 1:25 a.m. with glucose at 2:35 a.m.. Slight increased creatinine at 1.19 with BUN at 22. Total bili significantly elevated at 8.9 AST of 74 ALT 100 alk-phos almost a 1000. Ammonia is not elevated Lipase is unremarkable Imaging studies independently reviewed: Ultrasound was ordered and shows dilated bile duct and the presence of a surgically absent gallbladder, positive intrahepatic biliary dilatation and a question of a mass in the head of the pancreas Treatments: Fluids, pain medication Discussion: 78-year-old woman with increasing epigastric pain and weight loss CT scan confirms pancreatic cancer with a 3 x 2.5 x 3 cm mass in the head with subsequent ductal dilatation, pancreatic parenchymal atrophy, vascular involvement with the SMV occluded and some portal vein is collaterals. She does have enlarged abdominal nodes also appreciated. All of this is reviewed with the patient. She understands that this is what is causing her pain, with the SMV occluded that is probably what is causing her postprandial pain. We reviewed this in detail. With shared decision-making we went over options. She was not interested in an oncology referral or consultation. She was very pragmatic about the fact that this is a cancer, she is 78, the cancer is not surgically resectable and the cancer is likely going to kill her. We talked about pain control as well as hospice referral. She was not ready to continue discussing hospice referral yet but was willing to consider discussions regarding pain medications. We will give her a prescription for oxycodone to use as needed as well as Narcan should she accidentally take more than anticipated. She has a follow up with her primary care doctor in about a week and a half. We will give her copies of blood work and CT reports to share with her doctor so they can further strategies best treatment as she approaches the end of her life with pragmatism and aura. Discharge Plan Departure Patient Disposition: Home Clinical Impression: Pancreatic cancer Qualifiers: Pancreatic malignancy location: head of pancreas Qualified Code(s): C25.0 - Malignant neoplasm of head of pancreas Instructions: DI for Pancreaticobiliary Cancer Activity Restrictions/Additional Instructions: Thank you for coming in today. Unfortunately, I did find an explanation for the abdominal pain that is causing your weight loss. You have cancer about the size of a golf ball in the head of your pancreas. It is blocking off some of the blood vessels to the upper part of your guts which is why you are having pain when eating as well Unfortunately, this is not a cancer that can be removed. We talked about referral to an oncologist but you preferred the more pragmatic approach of pain control and dealing with this terrible diagnosis on your own terms. I have given you a prescription for oxycodone. This is a narcotic pain medication and will cause constipation. I would suggest starting with 1 pain pill as needed every 4-6 hours. You can increase this to 2 pain pills every 4-6 hours and then to 3 pain pills every 4-6 hours. If you accidentally taken extra dose of pain medication and feel that you are becoming too sleepy I have also given you a prescription for Narcan. This is a medication that is scored it up your nose that reverses pain medication so that you do not accidentally overdose. I would also very strongly recommend that you get large bottle of MiraLax. This is a stool softener. I would recommend a scoop at least daily to keep your stool soft while you are on narcotics. If you have not pooped by the evening, I would recommend a 2nd scoop before bed. I have given you copies of your blood work and CT scans to share with your primary care physician with your upcoming appointment. If you have new concerns or additional findings, please return to the ER Prescriptions: No Action losartan 50 mg Tablet 50 mg PO QAM Patient Comments: Please verify dose with pt fluoxetine 40 mg Capsule 40 mg PO DAILY metformin 500 mg Tablet 500 mg PO BID simvastatin 40 mg Tablet 40 mg PO QPM dicyclomine 20 mg Tablet 40 mg PO BID pantoprazole 40 mg Tablet,Delayed Release (Dr/Ec) 40 mg PO DAILY [id number] 50-300-40 mg Capsule 1 - 2 cap PO Q4H PRN (Reason: Headache) bismuth subsalicylate [Pepto-Bismol] 262 mg Tablet 4 tab PO BID ascorbic acid (vitamin C) [Vitamin C] 500 mg Tablet 500 mg PO DAILY Qty: 0 0RF docusate sodium 100 mg Capsule 100 mg PO BID Qty: 0 0RF oxycodone 5 mg Tablet 5 mg PO Q4H PRN (Reason: pain) Qty: 60 0RF hydroxyzine pamoate 25 mg Capsule 25 mg PO Q4HR PRN (Reason: Nausea And Vomiting) Qty: 30 0RF Referrals: Chelsie Her ARNP [Primary Care Provider] - Stand Alone Forms: Patient Portal/API
--- NOTE | 2024-08-03 20:52 | DI.CT.S_ITS ---
PROCEDURE: CT ABDOMEN PELVIS W CON INDICATIONS: likely new pancreatic head mass TECHNIQUE: After the administration of intravenous contrast, axial sections acquired from the lung bases to the pubic symphysis. Coronal and sagittal reformats were performed. For radiation dose reduction, the following was used: automated exposure control, adjustment of mA and/or kV according to patient size. COMPARISON: [facility], CT, CT CHEST WITHOUT CONTRAST, 11/29/2023, 16:26. FINDINGS: Image quality: Diagnostic Lower chest: Lower lung atelectasis/scarring. Liver: No definite solid mass Gallbladder and biliary system: Marked biliary dilation. Gallbladder is absent Pancreas: Pancreatic ductal dilation distal atrophy. Pancreatic head mass measures 3.1 x 2.4 x 2.9 cm. This encases and narrows the portal confluence. This also involves the common hepatic artery and GDA. This abuts the SMA. The SMV is occluded. Spleen: Indeterminate subcentimeter superior pole lesion, too small to characterize Adrenals: No discrete nodules Kidneys: Right greater than left atrophy. Right upper pole renal cyst. Vessels and lymph nodes: There are portal venous varices. No abdominal aortic aneurysm. Indeterminate borderline enlarged upper abdominal lymph nodes, for example portal caval node measures 1.1 cm in short axis Bowel and peritoneum: Increased fecal loading. Moxp-cu-zvewgolw hiatal hernia. No small bowel obstruction. No drainable ascites Body wall: Unremarkable Pelvis: Bladder is unremarkable. Uterus is absent Bones: There are degenerative changes. Lumbosacral fusion hardware. Age-indeterminate height loss of L1. This was seen previously IMPRESSION: Pancreatic head mass with ductal dilation and pancreatic parenchymal atrophy compatible with adenocarcinoma. This is not resectable, vascular involvement described above. The SMV is occluded with some portal venous collaterals. Indeterminate mildly enlarged upper abdominal lymph nodes. Other findings above. Increased fecal loading incidentally noted. No acute small bowel obstruction Dictated by: Sundeep Ferreira M.D. on 08/03/2024 at 22:49 Approved by: Sundeep Ferreira M.D. on 08/03/2024 at 22:54
[2024-08-03] MEDS: ONDANSETRON 4 MG/2 ML INJ IV (21:19)
[2024-08-03] MEDS: SODIUM CHLORIDE 0.9% 1,000 ML 1000 ML IV (21:19)
[2024-08-03] MEDS: HYDROMORPHONE 0.5 MG INJ IV ×2 (21:20→21:53)
[2024-08-03 23:31] LABS: Ictotest Urine Positive (Negative); Urine Volume 10mL (spun)
[2024-08-03 23:32] LABS: Bacteria Urine Many (>30); Culture Indicated Urine Cult Not Indicated; RBC Urine None Seen (0-5/HPF); Squamous Epithelial Cell Urine 1-5 /HPF (0-5/HPF); WBC Urine 0-1/HPF (0-5/HPF)
[2024-08-03] MEDS: OXYCODONE/APAP 5/325 PREPACK 1 BOTTLE MISC (23:52)
== END 2024-08-04 00:20 | disposition home or self-care (01) ==
PROVIDERS: Emergency Medicine; Emergency Provider Emergency Medicine; PCP Nurse Practitioner
DX: C25.0 Malignant neoplasm of head of pancreas (principal); D64.9 Anemia, unspecified; E87.1 Hypo-osmolality and hyponatremia; R79.89 Other specified abnormal findings of blood chemistry
CPT/HCPCS: 36415; 74177; 76705; 80053; 80320; 80329; 81003; 81015; 82140; 83690; 85025; 87077; 87086; 87186; 96361; 96374; 96375; 99284; G0480; J1170; J2405; Q9967